=== PATIENT | female | born 1935 | race Caucasian/White ===

== ENCOUNTER → 2017-02-04 | Outpatient (CLI) | payer MEDICARE, OTHER ==
--- NOTE | 2017-02-04 19:16 | US ---
EXAMINATION TYPE: US venous doppler duplex LE LT DATE OF EXAM: 02/04/2017 6:43 PM COMPARISON: NONE CLINICAL HISTORY: R22.42 Swelling, mass, lump, left leg. SIDE PERFORMED: Left TECHNIQUE: The lower extremity deep venous system is examined utilizing real time linear array sonog raudel with graded compression, doppler sonography and color-flow sonography. VESSELS IMAGED: External Iliac Vein (EIV) Common Femoral Vein Deep Femoral Vein Greater Saphenous Vein * Femoral Vein Popliteal Vein Small Saphenous Vein * Proximal Calf Veins (* superficial vessels) Left Leg: Negative for DVT No evidence of DVT left leg IMPRESSION: Normal exam. No evidence of deep venous thrombosis in the left leg.
== END | disposition home or self-care (01) ==
LOC: RADUSMAIN 18:14
PROVIDERS: ATTEND Internal Medicine
DX: R22.42 Localized swelling, mass and lump, left lower limb (principal)

== ENCOUNTER → 2017-07-06 | Outpatient (CLI) | payer MEDICARE | END | disposition home or self-care (01) | LOC: LABWHC1 10:47 | PROVIDERS: ATTEND Radiology Diagnostic Radiology | DX: N28.9 Disorder of kidney and ureter, unspecified (principal) | CPT/HCPCS: 36415; 82565; 84520 ==

== ENCOUNTER → 2017-08-06 | Outpatient (CLI) | payer MEDICARE ==
--- NOTE | 2017-08-06 13:52 | US ---
EXAMINATION TYPE: US venous doppler duplex LE LT DATE OF EXAM: 08/06/2017 1:31 PM COMPARISON: Left lower extremity venous ultrasound February 04, 2017 CLINICAL HISTORY: R22.42 Swelling left lower limb. SIDE PERFORMED: Left TECHNIQUE: The lower extremity deep venous system is examined utilizing real time linear array sonog raudel with graded compression, doppler sonography and color-flow sonography. VESSELS IMAGED: External Iliac Vein (EIV) Common Femoral Vein Deep Femoral Vein Greater Saphenous Vein * Femoral Vein Popliteal Vein Small Saphenous Vein * Proximal Calf Veins (* superficial vessels) Left Leg: Unable to do compression views in groin due to patient tolerance. Appears negative for DVT. Grayscale, color doppler, spectral doppler imaging performed of the deep veins of the left lower extr emity. There is normal flow and vascular waveforms. Exam slightly suboptimal as patient could not t olerate compression images in left groin. Remainder left groin shows satisfactory compressibility on images saved. IMPRESSION: No ultrasound evidence for acute DVT in the left lower extremity.
== END | disposition home or self-care (01) ==
LOC: RADUSWWP 13:03
PROVIDERS: ATTEND Radiology Radiation Oncology
DX: R22.42 Localized swelling, mass and lump, left lower limb (principal); I82.0 Budd-Chiari syndrome; Z88.5 Allergy status to narcotic agent; Z88.8 Allergy status to other drugs, medicaments and biological substances

== ENCOUNTER → 2017-08-19 | Outpatient (CLI) | payer MEDICARE ==
[2017-08-19 10:11] LABS: Basophils % (A) 1 %; Eosinophils # (A) 0.1 k/uL (0-0.7); Eosinophils % (A) 2 %; HCT 28.8 % (34.0-46.0); HGB 8.8 gm/dL (11.4-16.0); Hypochromasia Slight; Lymphocytes # (A) 0.8 k/uL (1.0-4.8); Lymphocytes % (A) 16 %; MCH 27.7 pg (25.0-35.0); MCHC 30.7 g/dL (31.0-37.0); MCV 90.1 fL (80.0-100.0); Mean Platelet Volume 8.1; Monocytes # (A) 0.4 k/uL (0-1.0); Monocytes % (A) 9 %; Neutrophils # (A) 3.3 k/uL (1.3-7.7); Neutrophils % (A) 71 %; Platelet Count 196 k/uL (150-450); RBC 3.19 m/uL (3.80-5.40); RDW 15.5 % (11.5-15.5); WBC 4.7 k/uL (3.8-10.6)
[2017-08-19 10:46] LABS: Albumin 3.4 g/dL (3.5-5.0); Calcium 8.5 mg/dL (8.4-10.2); Potassium 5.4 mmol/L (3.5-5.1); Total Bilirubin 0.2 mg/dL (0.2-1.3); Total Protein 6.6 g/dL (6.3-8.2)
[2017-08-19 10:53] LABS: T4, Free (Free Thyroxine) 1.3 ng/dL (0.78-2.19)
[2017-08-19 18:43] LABS: Hemoglobin A1C 5.7 % (4.0-6.0)
== END | disposition home or self-care (01) ==
LOC: LABWHC1 09:40
PROVIDERS: ATTEND Internal Medicine
DX: E78.00 Pure hypercholesterolemia, unspecified (principal); E11.9 Type 2 diabetes mellitus without complications; I10 Essential (primary) hypertension; Z13.29 Encounter for screening for other suspected endocrine disorder
CPT/HCPCS: 36415; 80053; 80061; 83036; 84439; 84443; 85025

== ENCOUNTER 2017-10-04 19:16 | Inpatient (IN) | payer MEDICARE ==
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
[2017-10-04 20:10] LABS: Anisocytosis Slight; Basophils % (A) 1 %; Eosinophils # (A) 0.2 k/uL (0-0.7); Eosinophils % (A) 3 %; HGB 9.3 gm/dL (11.4-16.0); Lymphocytes % (A) 16 %; MCH 28.9 pg (25.0-35.0); MCHC 32.1 g/dL (31.0-37.0); MCV 90.1 fL (80.0-100.0); Mean Platelet Volume 7.7; Monocytes # (A) 0.4 k/uL (0-1.0); Monocytes % (A) 7 %; Neutrophils # (A) 4.2 k/uL (1.3-7.7); Neutrophils % (A) 71 %; Platelet Count 243 k/uL (150-450); RBC 3.22 m/uL (3.80-5.40); RDW 16.2 % (11.5-15.5); WBC 5.9 k/uL (3.8-10.6)
[2017-10-04 20:19] LABS: Amylase 51 U/L (30-110); Lipase 44 U/L (23-300)
[2017-10-04 20:20] LABS: Albumin 3.4 g/dL (3.5-5.0); Total Protein 6.5 g/dL (6.3-8.2)
[2017-10-04 20:21] LABS: Calcium 8.7 mg/dL (8.4-10.2); Magnesium 1.5 mg/dL (1.6-2.3); Total Bilirubin 0.2 mg/dL (0.2-1.3)
[2017-10-04 20:27] LABS: Creatine Kinase 52 U/L (30-135)
[2017-10-04 20:32] LABS: Potassium 6.2 mmol/L (3.5-5.1)
--- NOTE | 2017-10-04 20:32 | XR ---
EXAMINATION TYPE: XR chest 2V DATE OF EXAM: 10/04/2017 COMPARISON: 04/16/2017 INDICATION: Pneumonia dementia uterine cancer TECHNIQUE: Frontal and lateral views of the chest are obtained. FINDINGS: The heart size is mildly prominent. The pulmonary vasculature is normal. The lungs are clear. No suspicious focal consolidation is evident. Multiple old right rib fractures are evident with deformity of the thoracic cavity which is stable from comparison. IMPRESSION: 1. No acute pulmonary process.
--- NOTE | 2017-10-04 20:33 | XR ---
EXAMINATION TYPE: XR KUB DATE OF EXAM: 10/04/2017 COMPARISON: NONE INDICATION: Pain TECHNIQUE: Single view abdomen supine view FINDINGS: There is a normal bowel gas pattern. Psoas margins are normal. No organomegaly is present. Surgical sutures within the right midabdomen. Osseous structures have degenerative changes within the lumbar spine. Costochondral cartilage calcification is present. IMPRESSION: 1. Nonspecific abdomen.
[2017-10-04] MEDS ORDERED: SODIUM CHLORIDE 0.9% 1,000 ML IV STA (20:34)
[2017-10-04 20:40] LABS: Creatine Kinase MB 2.6 ng/mL (0.0-2.4); Troponin I <0.012 ng/mL (0.000-0.034)
[2017-10-04 20:42] LABS: Prothrombin Time 9.7 sec (9.0-12.0)
[2017-10-04 20:44] LABS: D-Dimer 2.16 mg/L FEU (<0.60)
[2017-10-04 20:45] LABS: Partial Thromboplastin Time 21.4 sec (22.0-30.0)
[2017-10-04] MEDS ORDERED: MAGNESIUM SULFATE-D5W PMX 1 GM in DEXTROSE/WATER 1 100ML.BAG IVPB ONE (21:08)
[2017-10-04] MEDS ORDERED: NALOXONE 0.4 MG/ML 1 ML VIAL IV PRN (21:18)
[2017-10-04] MEDS ORDERED: ACETAMINOPHEN TAB 325 MG TAB PO PRN (21:18)
[2017-10-04] MEDS: SODIUM CHLORIDE 0.9% 1,000 ML IV SCH (22:46)
[2017-10-05 02:29] LABS: Creatine Kinase 50 U/L (30-135)
[2017-10-05 02:39] LABS: Creatine Kinase MB 2.2 ng/mL (0.0-2.4); Troponin I <0.012 ng/mL (0.000-0.034)
[2017-10-05 03:44] LABS: Anisocytosis Slight; HCT 27.5 % (34.0-46.0); HGB 8.7 gm/dL (11.4-16.0); Hypochromasia Slight; MCH 28.6 pg (25.0-35.0); MCHC 31.5 g/dL (31.0-37.0); MCV 90.9 fL (80.0-100.0); Mean Platelet Volume 7.7; Platelet Count 196 k/uL (150-450); RBC 3.02 m/uL (3.80-5.40); RDW 16.1 % (11.5-15.5); WBC 5.2 k/uL (3.8-10.6)
[2017-10-05 04:00] LABS: Calcium 8.6 mg/dL (8.4-10.2); Magnesium 1.8 mg/dL (1.6-2.3); Potassium 5.7 mmol/L (3.5-5.1)
[2017-10-05 09:31] LABS: Creatine Kinase 57 U/L (30-135)
[2017-10-05 09:44] LABS: Troponin I <0.012 ng/mL (0.000-0.034)
[2017-10-05] MEDS: SODIUM CHLORIDE 0.9% 1,000 ML IV SCH (12:10)
[2017-10-05] MEDS ORDERED: CARVEDILOL 12.5 MG TAB PO SCH (17:15)
[2017-10-05] MEDS: ASPIRIN 81 MG PO SCH (17:45)
[2017-10-05] MEDS: LINAGLIPTIN 5 MG TABLET PO SCH (17:45)
[2017-10-05] MEDS: LISINOPRIL 20 MG TAB PO SCH (17:46)
[2017-10-05] MEDS: PANTOPRAZOLE 40 MG/10 ML VIAL IVP SCH (17:46)
[2017-10-05] MEDS: CITALOPRAM HYDROBROMIDE 20 MG TAB PO SCH (17:46)
[2017-10-05] MEDS: amLODIPine 5 MG TAB PO SCH (17:46)
[2017-10-05 17:59] LABS: Appearance,Urine Clear (Clear); Bilirubin,Urine Negative (Negative); Blood,Urine Negative (Negative); Color,Urine Colorless; Glucose,Urine (UA) Negative (Negative); Ketones,Urine Negative (Negative); Leukocyte Esterase,Urine Trace (Negative); Nitrite,Urine Negative (Negative); Protein,Urine 1+ (Negative); RBC,Urine <1 /hpf (0-5); Specific Gravity,Urine 1.007 (1.001-1.035); Squamous Epithelial Cell,Urine <1 /hpf (0-4); Urobilinogen,Urine <2.0 mg/dL (<2.0); WBC,Urine 2 /hpf (0-5)
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
[2017-10-05 20:54] LABS: Glucose,Whole Blood 130 mg/dL (75-99)
[2017-10-05] MEDS: CITALOPRAM HYDROBROMIDE 10 MG TAB PO SCH (21:47)
[2017-10-05] MEDS: traMADol 50 MG TAB PO SCH (21:48)
[2017-10-05] MEDS: HEPARIN SODIUM,PORCINE 5,000 UNIT/ML 1 ML VIAL SQ SCH (21:53)
[2017-10-06] MEDS: SODIUM CHLORIDE 0.9% 1,000 ML IV SCH ×2 (05:10→15:26)
[2017-10-06 06:10] LABS: Glucose,Whole Blood 98 mg/dL (75-99)
[2017-10-06 06:25] LABS: Anisocytosis Slight; Basophils % (A) 1 %; Eosinophils # (A) 0.1 k/uL (0-0.7); Eosinophils % (A) 2 %; HCT 27.9 % (34.0-46.0); HGB 8.7 gm/dL (11.4-16.0); Hypochromasia Slight; Lymphocytes # (A) 0.8 k/uL (1.0-4.8); Lymphocytes % (A) 20 %; MCH 28.4 pg (25.0-35.0); MCV 91.6 fL (80.0-100.0); Mean Platelet Volume 7.6; Monocytes # (A) 0.4 k/uL (0-1.0); Monocytes % (A) 9 %; Neutrophils # (A) 2.6 k/uL (1.3-7.7); Neutrophils % (A) 65 %; Platelet Count 191 k/uL (150-450); RBC 3.05 m/uL (3.80-5.40); RDW 16.2 % (11.5-15.5)
[2017-10-06 06:45] LABS: Calcium 8.7 mg/dL (8.4-10.2); Potassium 5.2 mmol/L (3.5-5.1)
[2017-10-06] MEDS: HEPARIN SODIUM,PORCINE 5,000 UNIT/ML 1 ML VIAL SQ SCH ×2 (10:45→20:49)
[2017-10-06] MEDS: CITALOPRAM HYDROBROMIDE 20 MG TAB PO SCH (10:46)
[2017-10-06] MEDS: PANTOPRAZOLE 40 MG/10 ML VIAL IVP SCH (10:46)
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
[2017-10-06] MEDS: LINAGLIPTIN 5 MG TABLET PO SCH (10:47)
[2017-10-06] MEDS: FUROSEMIDE 20 MG TAB PO SCH (10:47)
[2017-10-06] MEDS: ASPIRIN 81 MG PO SCH (10:47)
[2017-10-06] MEDS: LISINOPRIL 20 MG TAB PO SCH (10:47)
[2017-10-06] MEDS: amLODIPine 5 MG TAB PO SCH (10:47)
[2017-10-06] MEDS: LORATADINE 10 MG TAB PO SCH (10:47)
[2017-10-06] MEDS: traMADol 50 MG TAB PO SCH ×2 (10:49→20:50)
--- NOTE | 2017-10-06 10:50 | NM ---
EXAMINATION TYPE: NM pul vent and perfuse DATE OF EXAM: 10/06/2017 COMPARISON: Chest x-ray from 2 days ago HISTORY: Elevated d-dimer and chest pain TECHNIQUE: Utilizing inhalation of 39.1 mCi Tc 99m DTPA aerosol and intravenous injection of 5.21 mC i of Tc 99m MAA, ventilation and perfusion images are acquired post injection in multiple projections . FINDINGS: There are small to moderate-sized matching defects worse in the right lung which is noted smaller in size with old rib fractures on comparison chest x-ray. There is no evidence of mismatched defects. IMPRESSION: Low scintigraphic evidence for pulmonary embolism
[2017-10-06 11:26] LABS: Glucose,Whole Blood 128 mg/dL (75-99)
--- NOTE | 2017-10-06 16:02 | ECHOF ---
Referral Reason:chest pain MEASUREMENTS -------- HEIGHT: 165.1 cm WEIGHT: 76.2 kg BP: 134/56 RVIDd: 3.1 cm (< 3.3) IVSd: 1.0 cm (0.6 - 1.1) LVIDd: 5.1 cm (3.9 - 5.3) LVPWd: 1.0 cm (0.6 - 1.1) IVSs: 1.4 cm LVIDs: 2.9 cm LVPWs: 1.3 cm LAESV Index (A-L): 44.75 ml/m Ao Diam: 2.5 cm (2.0 - 3.7) AV Cusp: 1.1 cm (1.5 - 2.6) LA Diam: 4.3 cm (2.7 - 3.8) EPSS: 1.4 cm MV E Jerry: 1.29 m/s MV DecT: 278 ms MV A Jerry: 1.39 m/s MV E/A Ratio: 0.93 AV maxP.12 mmHg AV meanP.16 mmHg RAP: 5.00 mmHg RVSP: 43.87 mmHg MV EF SLOPE: 41.73 mm/s (70 - 150) MV EXCURSION: 1.78 cm (> 18.000) FINDINGS -------- Sinus rhythm. This was a technically adequate study. The left ventricular size is normal. Left ventricular wall thickness is normal. Overall left vent ricular systolic function is normal with, an EF between 55 - 60 %. The RV was not well visualized. LA is severely dilated >40 ml/m2 RA appears enlarged. There is mild to moderate aortic valve sclerosis. There is no evidence of aortic regurgitation. T here is mild aortic stenosis present. Peak/mean gradient across the Aortic Valve is 20.12mmHg / 11. 16mmHg. Moderate mitral annular calcification present. Mild mitral regurgitation is present. Mild tricuspid regurgitation present. There is mild pulmonary hypertension. The right ventricular systolic pressure, as measured by Doppler, is 43.87mmHg. Trace/mild (physiologic) pulmonic regurgitation. The aortic root size is normal. Normal inferior vena cava with normal inspiratory collapse consistent with estimated right atrial pre ssure of 5 mmHg. There is no pericardial effusion. CONCLUSIONS -------- 1. Sinus rhythm. 2. This was a technically adequate study. 3. The left ventricular size is normal. 4. Left ventricular wall thickness is normal. 5. Overall left ventricular systolic function is normal with, an EF between 55 - 60 %. 6. The RV was not well visualized. 7. LA is severely dilated >40 ml/m2 8. RA appears enlarged. 9. There is mild to moderate aortic valve sclerosis. 10. There is mild aortic stenosis present. 11. Peak/mean gradient across the Aortic Valve is 20.12mmHg / 11.16mmHg. 12. Moderate mitral annular calcification present. 13. Mild mitral regurgitation is present. 14. Mild tricuspid regurgitation present. 15. There is mild pulmonary hypertension. 16. The right ventricular systolic pressure, as measured by Doppler, is 43.87mmHg. 17. Trace/mild (physiologic) pulmonic regurgitation. 18. The aortic root size is normal. 19. There is no pericardial effusion. MANAGER LSW: Richard Regalado RDCS
[2017-10-06 16:52] LABS: Glucose,Whole Blood 129 mg/dL (75-99)
--- NOTE | 2017-10-06 19:46 | PN ---
PROGRESS NOTE DATE OF SERVICE: 10/06/2017. INTERVAL HISTORY: This 82-year-old woman who was admitted with abdominal chest pain, epigastric pain is being closely monitored. Patient also complains of tiredness, weakness and as well as gait dysfunction also. The V/VQ scan showed low probability. No chest pain. No palpitations. No fever. EXAM: Alert and oriented x2. Pulse 59. Blood pressure 120/54, respirations 16, temperature 97.2, pulse ox 94% room air. HEENT: Conjunctivae normal. NECK: No jugular venous distention. CARDIAC: S1, S2 muffled. RESPIRATIONS: Breath sounds diminished in the bases. A few scattered rhonchi. No crackles. ABDOMEN is soft, nontender. No mass palpable. LEGS no edema and no swelling. CENTRAL NERVOUS SYSTEM: No focal deficits. LAB STUDIES: WBC 8.4, hemoglobin 8.7, potassium 5.2. Other labs are noted. ASSESSMENT: 1. Chest pain, epigastric pain, myocardial infarction ruled out, possibly gastroesophageal reflux disease. 2. Sinus bradycardia. 3. Gait dysfunction. 4. Dementia. 5. Diabetes type 2. 6. Hypertension. 7. Hyperlipidemia. 8. History of pneumonia. 9. History of atrial fibrillation paroxysmal. 10.History of lymphoma. 11.History of sacral decubitus. 12.History of cholecystectomy. 13.History of anxiety. 14.FULL CODE. RECOMMENDATIONS AND DISCUSSION: Recommend to continue current medications, management and symptomatic treatment. Otherwise, at this time, I would recommend continue the current medication. PT/OT evaluation, possible ECF rehab. Discussed with Case Management team and further recommendations to follow. MMODL / IJN: [id number] /
[2017-10-06] MEDS: CITALOPRAM HYDROBROMIDE 10 MG TAB PO SCH (20:49)
[2017-10-06 21:12] LABS: Glucose,Whole Blood 154 mg/dL (75-99)
[2017-10-07 06:02] LABS: Glucose,Whole Blood 97 mg/dL (75-99)
[2017-10-07 06:32] LABS: Anisocytosis Slight; Basophils % (A) 1 %; Eosinophils # (A) 0.1 k/uL (0-0.7); Eosinophils % (A) 3 %; HCT 27.6 % (34.0-46.0); HGB 8.5 gm/dL (11.4-16.0); Hypochromasia Moderate; Lymphocytes # (A) 0.9 k/uL (1.0-4.8); Lymphocytes % (A) 19 %; MCH 28.2 pg (25.0-35.0); MCHC 30.7 g/dL (31.0-37.0); MCV 91.6 fL (80.0-100.0); Mean Platelet Volume 7.6; Monocytes # (A) 0.4 k/uL (0-1.0); Monocytes % (A) 9 %; Neutrophils # (A) 3.1 k/uL (1.3-7.7); Neutrophils % (A) 66 %; Platelet Count 207 k/uL (150-450); RBC 3.01 m/uL (3.80-5.40); RDW 16.4 % (11.5-15.5); WBC 4.6 k/uL (3.8-10.6)
[2017-10-07 06:56] LABS: Calcium 8.7 mg/dL (8.4-10.2); Potassium 5.3 mmol/L (3.5-5.1)
[2017-10-07] MEDS: SODIUM CHLORIDE 0.9% 1,000 ML IV SCH ×2 (06:56→19:52)
[2017-10-07] MEDS: amLODIPine 5 MG TAB PO SCH (08:21)
[2017-10-07] MEDS: CITALOPRAM HYDROBROMIDE 20 MG TAB PO SCH (08:21)
[2017-10-07] MEDS: HEPARIN SODIUM,PORCINE 5,000 UNIT/ML 1 ML VIAL SQ SCH ×2 (08:21→20:16)
[2017-10-07] MEDS: ASPIRIN 81 MG PO SCH (08:21)
[2017-10-07] MEDS: LINAGLIPTIN 5 MG TABLET PO SCH (08:22)
[2017-10-07] MEDS: LORATADINE 10 MG TAB PO SCH (08:22)
[2017-10-07] MEDS: LISINOPRIL 20 MG TAB PO SCH (08:22)
[2017-10-07] MEDS: PANTOPRAZOLE 40 MG/10 ML VIAL IVP SCH (08:22)
[2017-10-07] MEDS: traMADol 50 MG TAB PO SCH ×2 (08:24→20:15)
[2017-10-07 12:18] LABS: Glucose,Whole Blood 128 mg/dL (75-99)
--- NOTE | 2017-10-07 14:21 | P.DS ---
Providers Date of admission: 10/04/17 21:18 Attending physician: Antoinette Garcia Consults: 10/05/17 17:04 Consult Physician Routine Consulting Provider: Canelo Helms Consult Reason/Comments: chest pain Do you want consulting provider notified?: Yes Primary care physician: Hansa Finch [facility] Course: She is a very pleasant 82-year-old female admitted to rule out acute coronary syndromes. Patient has atypical chest pain appears to be gastritis or peptic is a disease symptoms improved patient will be discharged on Prilosec 40 mg twice a day. Patient is on lisinopril and her potassium is borderline high history it was 5.1 today 5.3 will cut down the lisinopril from 20 mg to 5 mg increase the dose of amlodipine. Patient will be discharged today to subacute rehabilitation. PHYSICAL EXAMINATION: GENERAL: The patient is alert and oriented x3, not in any acute distress. Well developed, well nourished. HEENT: Pupils are round and equally reacting to light. EOMI. No scleral icterus. No conjunctival pallor. Normocephalic, atraumatic. No pharyngeal erythema. No thyromegaly. CARDIOVASCULAR: S1 and S2 present. No murmurs, rubs, or gallops. PULMONARY: Chest is clear to auscultation, no wheezing or crackles. ABDOMEN: Soft, nontender, nondistended, normoactive bowel sounds. No palpable organomegaly. MUSCULOSKELETAL: No joint swelling or deformity. EXTREMITIES: No cyanosis, clubbing, or pedal edema. NEUROLOGICAL: Gross neurological examination did not reveal any focal deficits. SKIN: No rashes. Assessment and Plan Plan: Assessment and plan #1 epigastric discomfort due to gastritis or peptic ulcer disease #2 diabetes2 #3 hypertension #4 dementia #5 hyperkalemia #6 abnormal d-dimer, VQ scan ordered to rule out possibility of PE. Patient Condition at Discharge: Stable Plan - Discharge Summary New Discharge Prescriptions: New amLODIPine [Norvasc] 10 mg PO DAILY tab Lisinopril [Zestril] 5 mg PO DAILY #30 tab Continue Citalopram Hydrobromide [CeleXA] 40 mg PO QAM Cetirizine HCl [Zyrtec] 10 mg PO DAILY sitaGLIPtin [Januvia] 100 mg PO DAILY Furosemide [Lasix] 20 mg PO Q48H Citalopram Hydrobromide [CeleXA] 10 mg PO HS Aspirin 81 mg PO DAILY Acetaminophen Tab [Tylenol] 500 - 1,000 mg PO Q6HR PRN MDD 6 TABLETS PRN Reason: Pain traMADol HCL [Ultram] 50 mg PO BID #6 tablet Changed Omeprazole [PriLOSEC] 20 mg PO BID #1 Discontinued Carvedilol [Coreg*] 12.5 mg PO DAILY amLODIPine BESYLATE/BENAZEPRIL [Lotrel 5-10 mg Capsule] 1 cap PO DAILY Discharge Medication List Cetirizine HCl [Zyrtec] 10 mg PO DAILY 10/04/17 [History] Citalopram Hydrobromide [CeleXA] 40 mg PO QAM 10/04/17 [History] Furosemide [Lasix] 20 mg PO Q48H 10/04/17 [History] sitaGLIPtin [Januvia] 100 mg PO DAILY 10/04/17 [History] Acetaminophen Tab [Tylenol] 500 - 1,000 mg PO Q6HR PRN MDD 6 TABLETS 10/05/17 [ History] Aspirin 81 mg PO DAILY 10/05/17 [History] Citalopram Hydrobromide [CeleXA] 10 mg PO HS 10/05/17 [History] Lisinopril [Zestril] 5 mg PO DAILY #30 tab 10/07/17 [Rx] Omeprazole [PriLOSEC] 20 mg PO BID #1 10/07/17 [Rx] amLODIPine [Norvasc] 10 mg PO DAILY tab 10/07/17 [Rx] traMADol HCL [Ultram] 50 mg PO BID #6 tablet 10/07/17 [Rx] Follow up Appointment(s)/Referral(s): None,Stated [REFERRING] - 3 Days Ambulatory/Diagnostic Orders: Basic Metabolic Panel [LAB.AMB] Time Frame: 3 Days, Location: Determined By Patient Activity/Diet/Wound Care/Special Instructions: Maureen Eller on D/C Discharge Disposition: TRANSFER TO SNF/ECF
--- NOTE | 2017-10-07 14:44 | CDI ---
Last Revision, April 2017 Documentation Clarification Form Date: 10/07/17 1442 From: Corrine Khalil RN, CCDS Admit Date: 10/04/2017 9:18:00 PM Patient Name: Lesley Griggs Visit Number: [id number] ATTENTION: The Clinical Documentation Specialists (CDI) and [facility] Coding Staff appreciate your assistance in clarifying documentation. Please respond to the clarification below the line at the bottom and electronically sign. The CDI & [facility] Coding staff will review the response and follow-up if needed. Please note: Queries are made part of the Legal Health Record. If you have any questions, please contact the author of this message via ITS. Dr. Mary Blankenship A diagnosis of anemia lacks specificity to accurately reflect your patients severity of condition and clarification is needed. History/Risk Factors: Dementia, anemia, HTN, DM 2 Clinical indicators: Hemoglobin: 9.3/8.7/8.5 Hematocrit: 29/27.5/27.9/27.6 Treatment: Labs AM daily In order to capture the severity of condition, please clarify the type of anemia and etiology if known: Acute on chronic blood loss anemia Chronic blood loss anemia Iron deficiency anemia Drug induced anemia Nutritional anemia Anemia of chronic kidney disease Anemia of chronic disease Unable to determine Other, please specify Please continue to document in your progress notes and discharge summary in order to capture severity of illness and risk of mortality. Include clinical findings that support your diagnosis. MTDD
[2017-10-07 16:57] LABS: Glucose,Whole Blood 104 mg/dL (75-99)
[2017-10-07] MEDS: CITALOPRAM HYDROBROMIDE 10 MG TAB PO SCH (20:16)
[2017-10-07 20:50] LABS: Glucose,Whole Blood 174 mg/dL (75-99)
[2017-10-08 05:49] LABS: Glucose,Whole Blood 96 mg/dL (75-99)
[2017-10-08 06:37] LABS: Anisocytosis Slight; Basophils % (A) 1 %; Eosinophils # (A) 0.1 k/uL (0-0.7); Eosinophils % (A) 3 %; HCT 27.5 % (34.0-46.0); HGB 8.9 gm/dL (11.4-16.0); Hypochromasia Slight; Lymphocytes # (A) 0.7 k/uL (1.0-4.8); Lymphocytes % (A) 16 %; MCH 29.2 pg (25.0-35.0); MCHC 32.2 g/dL (31.0-37.0); MCV 90.7 fL (80.0-100.0); Mean Platelet Volume 7.7; Monocytes # (A) 0.4 k/uL (0-1.0); Monocytes % (A) 9 %; Neutrophils % (A) 69 %; Platelet Count 173 k/uL (150-450); RBC 3.03 m/uL (3.80-5.40); RDW 16.1 % (11.5-15.5); WBC 4.3 k/uL (3.8-10.6)
[2017-10-08 06:56] LABS: Calcium 9.2 mg/dL (8.4-10.2); Potassium 5.2 mmol/L (3.5-5.1)
[2017-10-08] MEDS: PANTOPRAZOLE 40 MG/10 ML VIAL IVP SCH (07:50)
[2017-10-08] MEDS: HEPARIN SODIUM,PORCINE 5,000 UNIT/ML 1 ML VIAL SQ SCH ×2 (07:50→20:42)
[2017-10-08] MEDS: traMADol 50 MG TAB PO SCH ×2 (07:50→20:42)
[2017-10-08] MEDS: LINAGLIPTIN 5 MG TABLET PO SCH (07:51)
[2017-10-08] MEDS: amLODIPine 5 MG TAB PO SCH (07:51)
[2017-10-08] MEDS: LISINOPRIL 20 MG TAB PO SCH (07:51)
[2017-10-08] MEDS: ASPIRIN 81 MG PO SCH (07:51)
[2017-10-08] MEDS: FUROSEMIDE 20 MG TAB PO SCH (07:51)
[2017-10-08] MEDS: CITALOPRAM HYDROBROMIDE 20 MG TAB PO SCH (07:51)
[2017-10-08] MEDS: LORATADINE 10 MG TAB PO SCH (07:51)
[2017-10-08] MEDS: SODIUM CHLORIDE 0.9% 1,000 ML IV SCH (07:52)
[2017-10-08 11:59] LABS: Glucose,Whole Blood 143 mg/dL (75-99)
--- NOTE | 2017-10-08 13:32 | P.DS ---
Providers Date of admission: 10/04/17 21:18 Attending physician: Antoinette Garcia Consults: 10/05/17 17:04 Consult Physician Routine Consulting Provider: Canelo Helms Consult Reason/Comments: chest pain Do you want consulting provider notified?: Yes Primary care physician: Hansa Finch Hospital Course: Patient is awaiting insurance authorization because of pain which patient ended up staying in the hospital. I saw and evaluated the patient today no significant changes and physical exam are management and plan. Please refer to my dictation of my discharge summary from yesterday for further details. Patient has chronic anemia which need to be further evaluated as an outpatient etiology is unknown GENERAL: The patient is alert and oriented x3, not in any acute distress. Well developed, well nourished. Patient is bit confused but no significant change compared to yesterday HEENT: Pupils are round and equally reacting to light. EOMI. No scleral icterus. No conjunctival pallor. Normocephalic, atraumatic. No pharyngeal erythema. No thyromegaly. CARDIOVASCULAR: S1 and S2 present. No murmurs, rubs, or gallops. PULMONARY: Chest is clear to auscultation, no wheezing or crackles. ABDOMEN: Soft, nontender, nondistended, normoactive bowel sounds. No palpable organomegaly. MUSCULOSKELETAL: No joint swelling or deformity. EXTREMITIES: No cyanosis, clubbing, or pedal edema. NEUROLOGICAL: Gross neurological examination did not reveal any focal deficits. SKIN: No rashes. Patient Condition at Discharge: Stable Plan - Discharge Summary New Discharge Prescriptions: New amLODIPine [Norvasc] 10 mg PO DAILY tab Lisinopril [Zestril] 5 mg PO DAILY #30 tab Continue Citalopram Hydrobromide [CeleXA] 40 mg PO QAM Cetirizine HCl [Zyrtec] 10 mg PO DAILY sitaGLIPtin [Januvia] 100 mg PO DAILY Furosemide [Lasix] 20 mg PO Q48H Citalopram Hydrobromide [CeleXA] 10 mg PO HS Aspirin 81 mg PO DAILY Acetaminophen Tab [Tylenol] 500 - 1,000 mg PO Q6HR PRN MDD 6 TABLETS PRN Reason: Pain traMADol HCL [Ultram] 50 mg PO BID #6 tablet Changed Omeprazole [PriLOSEC] 20 mg PO BID #1 Discontinued Carvedilol [Coreg*] 12.5 mg PO DAILY amLODIPine BESYLATE/BENAZEPRIL [Lotrel 5-10 mg Capsule] 1 cap PO DAILY Discharge Medication List Cetirizine HCl [Zyrtec] 10 mg PO DAILY 10/04/17 [History] Citalopram Hydrobromide [CeleXA] 40 mg PO QAM 10/04/17 [History] Furosemide [Lasix] 20 mg PO Q48H 10/04/17 [History] sitaGLIPtin [Januvia] 100 mg PO DAILY 10/04/17 [History] Acetaminophen Tab [Tylenol] 500 - 1,000 mg PO Q6HR PRN MDD 6 TABLETS 10/05/17 [ History] Aspirin 81 mg PO DAILY 10/05/17 [History] Citalopram Hydrobromide [CeleXA] 10 mg PO HS 10/05/17 [History] Lisinopril [Zestril] 5 mg PO DAILY #30 tab 10/07/17 [Rx] Omeprazole [PriLOSEC] 20 mg PO BID #1 10/07/17 [Rx] amLODIPine [Norvasc] 10 mg PO DAILY tab 10/07/17 [Rx] traMADol HCL [Ultram] 50 mg PO BID #6 tablet 10/07/17 [Rx] Follow up Appointment(s)/Referral(s): None,Stated [REFERRING] - 3 Days Ambulatory/Diagnostic Orders: Basic Metabolic Panel [LAB.AMB] Time Frame: 3 Days, Location: Determined By Patient Activity/Diet/Wound Care/Special Instructions: Maureen Eller on D/C Discharge Disposition: TRANSFER TO SNF/ECF
[2017-10-08 14:37] VITALS: BMI 28.1
[2017-10-08 17:12] LABS: Glucose,Whole Blood 119 mg/dL (75-99)
[2017-10-08 20:21] LABS: Glucose,Whole Blood 137 mg/dL (75-99)
[2017-10-08] MEDS: CITALOPRAM HYDROBROMIDE 10 MG TAB PO SCH (20:42)
[2017-10-09] MEDS: SODIUM CHLORIDE 0.9% 1,000 ML IV SCH (03:04)
[2017-10-09 06:10] LABS: Glucose,Whole Blood 101 mg/dL (75-99)
[2017-10-09 06:38] LABS: Anisocytosis Slight; Basophils % (A) 1 %; Eosinophils # (A) 0.1 k/uL (0-0.7); Eosinophils % (A) 3 %; HCT 28.6 % (34.0-46.0); HGB 8.9 gm/dL (11.4-16.0); Hypochromasia Slight; Lymphocytes # (A) 0.8 k/uL (1.0-4.8); Lymphocytes % (A) 17 %; MCH 28.2 pg (25.0-35.0); MCV 90.9 fL (80.0-100.0); Mean Platelet Volume 7.6; Monocytes # (A) 0.5 k/uL (0-1.0); Monocytes % (A) 10 %; Neutrophils # (A) 3.2 k/uL (1.3-7.7); Neutrophils % (A) 67 %; Platelet Count 209 k/uL (150-450); RBC 3.15 m/uL (3.80-5.40); RDW 16.4 % (11.5-15.5); WBC 4.8 k/uL (3.8-10.6)
[2017-10-09 06:43] LABS: Potassium 5.3 mmol/L (3.5-5.1)
[2017-10-09] MEDS: ASPIRIN 81 MG PO SCH (08:16)
[2017-10-09] MEDS: CITALOPRAM HYDROBROMIDE 20 MG TAB PO SCH (08:16)
[2017-10-09] MEDS: HEPARIN SODIUM,PORCINE 5,000 UNIT/ML 1 ML VIAL SQ SCH (08:16)
[2017-10-09] MEDS: LINAGLIPTIN 5 MG TABLET PO SCH (08:16)
[2017-10-09] MEDS: LISINOPRIL 20 MG TAB PO SCH (08:17)
[2017-10-09] MEDS: LORATADINE 10 MG TAB PO SCH (08:17)
[2017-10-09] MEDS: amLODIPine 5 MG TAB PO SCH (08:17)
[2017-10-09] MEDS: traMADol 50 MG TAB PO SCH (08:20)
[2017-10-09] MEDS: PANTOPRAZOLE 40 MG/10 ML VIAL IVP SCH (08:29)
[2017-10-09 10:33] VITALS: BP 156/81; PULSE 73; TEMP 97.8
[2017-10-09 10:36] VITALS: RESP 18
--- NOTE | 2017-10-14 16:06 | CDI ---
Last Revision, April 2017 Documentation Clarification Form Date: 10/14/17 From: Merissa Leal Phone: If you have a question regarding this query, please contact Milli Hou at [phone] between 8am and 5pm Admit Date: 10/04/2017 9:18:00 PM Patient Name: Lesley Griggs Visit Number: [id number] Discharge Date: 10/09/17 ATTENTION: The Clinical Documentation Specialists (CDI) and [facility] Coding Staff appreciate your assistance in clarifying documentation. Please respond to the clarification below the line at the bottom and electronically sign. The CDI & [facility] Coding staff will review the response and follow-up if needed. Please note: Queries are made part of the Legal Health Record. If you have any questions, please contact the author of this message via ITS. Dr. Mary Blankenship Documentation in the past medical history of the ED note and the consult note, states past renal failure. Documentation in the medical decision making of the ED note states that the patient does have chronic renal failure. History/Risk Factors: Hypertension and diabetes. Clinical Indicators: Abnormal renal parameters Current BUN/CR/GFR: 43/1.40/35 - 56 Patients Baseline: BUN/CR/GFR: Not documented In order to capture the severity of condition, please clarify if the condition signifies: CKD Stage 1 (GFR > 90) CKD Stage 2 (GFR 60-89) CKD Stage 3 (GFR 30-59) CKD Stage 4 (GFR 15-29) CKD Stage 5 (GFR <15) ESRD Other, please specify Unable to determine MTDD
== END 2017-10-09 12:17 | disposition home health service (06) | DRG 392 ==
LOC: EC 19:16 → 6SEL 21:18
PROVIDERS: ADMIT Internal Medicine; ATTEND Internal Medicine
DX: K29.70 Gastritis, unspecified, without bleeding (principal); D64.9 Anemia, unspecified; E11.22 Type 2 diabetes mellitus with diabetic chronic kidney disease; E78.5 Hyperlipidemia, unspecified; E87.5 Hyperkalemia; F03.90 Unspecified dementia, unspecified severity, without behavioral disturbance, psychotic disturbance, mood disturbance, and anxiety; I12.9 Hypertensive chronic kidney disease with stage 1 through stage 4 chronic kidney disease, or unspecified chronic kidney disease; I45.10 Unspecified right bundle-branch block; I48.0 Paroxysmal atrial fibrillation; K27.9 Peptic ulcer, site unspecified, unspecified as acute or chronic, without hemorrhage or perforation; R79.1 Abnormal coagulation profile; F41.9 Anxiety disorder, unspecified; G89.29 Other chronic pain; M54.9 Dorsalgia, unspecified; R00.1 Bradycardia, unspecified; R26.9 Unspecified abnormalities of gait and mobility; K21.9 Gastro-esophageal reflux disease without esophagitis; N18.9 Chronic kidney disease, unspecified; M19.90 Unspecified osteoarthritis, unspecified site; Z79.82 Long term (current) use of aspirin; Z79.84 Long term (current) use of oral hypoglycemic drugs; Z79.899 Other long term (current) drug therapy; Z90.710 Acquired absence of both cervix and uterus; Z90.49 Acquired absence of other specified parts of digestive tract; Z87.01 Personal history of pneumonia (recurrent); Z85.72 Personal history of non-Hodgkin lymphomas; Z85.42 Personal history of malignant neoplasm of other parts of uterus; Z88.5 Allergy status to narcotic agent; Z88.8 Allergy status to other drugs, medicaments and biological substances; Z92.3 Personal history of irradiation; Z80.0 Family history of malignant neoplasm of digestive organs
CPT/HCPCS: 36415; 71046; 74018; 78582; 80048; 80053; 81001; 82150; 82550; 82553; 83036; 83690; 83735; 84484; 85025; 85027; 85379; 85610; 85730; 87086; 93005; 93306; 96361; 96365; 99284

== ENCOUNTER 2017-10-19 20:51 | Emergency (ER) | payer MEDICARE ==
[2017-10-19 21:18] VITALS: RESP 18
[2017-10-19] MEDS ORDERED: DIPH,PERTUS(ACELL)TETVAC-LF 0.5 ML VIAL IM ONE (21:28)
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
--- NOTE | 2017-10-19 22:45 | CT ---
EXAMINATION TYPE: CT brain pranay martins con DATE OF EXAM: 10/19/2017 COMPARISON: Head CT scan 04/16/2017 HISTORY: Fall, head injury, headache. CT DLP: 1711.3 mGycm Automated exposure control for dose reduction was used. TECHNIQUE: CT scan of the head and cervical spine are performed without contrast. FINDINGS: There is diffuse cerebral cortical atrophy. There is no mass effect nor midline shift. Th ere is no sign of intracranial hemorrhage. The calvarium is intact. Cervical vertebra have normal alignment. There is mild narrowing at C6-7 disc space. Posterior elemen ts are intact. Skull base is intact. Facet joints are intact. IMPRESSION: Cerebral atrophy. No acute intracranial abnormality. No change compared to old exam. Minimal spondylosis in the lower cervical spine. No fracture.
[2017-10-19 23:16] VITALS: BP 148/67; PULSE 69; TEMP 98.1
== END 2017-10-19 23:48 | disposition home or self-care (01) ==
LOC: EC 20:51
DX: S09.90XA Unspecified injury of head, initial encounter (principal); F03.90 Unspecified dementia, unspecified severity, without behavioral disturbance, psychotic disturbance, mood disturbance, and anxiety; E11.9 Type 2 diabetes mellitus without complications; E78.5 Hyperlipidemia, unspecified; I10 Essential (primary) hypertension; N28.9 Disorder of kidney and ureter, unspecified; F41.9 Anxiety disorder, unspecified; Z23 Encounter for immunization; Z88.5 Allergy status to narcotic agent; Z88.8 Allergy status to other drugs, medicaments and biological substances; Z79.82 Long term (current) use of aspirin; Z79.84 Long term (current) use of oral hypoglycemic drugs; Z79.899 Other long term (current) drug therapy; W18.09XA Striking against other object with subsequent fall, initial encounter; Y92.009 Unspecified place in unspecified non-institutional (private) residence as the place of occurrence of the external cause
CPT/HCPCS: 70450; 72125; 90471; 90715; 99284

== ENCOUNTER 2018-02-02 07:37 | Emergency (ER) | payer MEDICARE ==
[2018-02-02 07:50] VITALS: RESP 18; TEMP 98.1
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
[2018-02-02] MEDS ORDERED: SODIUM CHLORIDE 0.9% 1,000 ML IV ONE (08:37)
[2018-02-02] MEDS ORDERED: HYDROmorphone 0.5 MG/0.5 ML SYRINGE IVP STA (08:38)
[2018-02-02] MEDS ORDERED: ONDANSETRON 4 MG/2 ML VIAL IVP STA (08:38)
--- NOTE | 2018-02-02 08:46 | XR ---
EXAMINATION TYPE: XR tibia fibula LT DATE OF EXAM: 02/02/2018 COMPARISON: NONE HISTORY: Pain TECHNIQUE: Two views are submitted. FINDINGS: The osseous structures are intact. The joint spaces are preserved. Diffuse osteopenia noted. Arthro zac of the knee joint. Chondrocalcinosis involving the knee joint. IMPRESSION: 1. No acute osseous abnormality.
--- NOTE | 2018-02-02 08:47 | XR ---
EXAMINATION TYPE: XR femur LT DATE OF EXAM: 02/02/2018 CLINICAL HISTORY: Pain TECHNIQUE: Two views of the left femur are obtained. COMPARISON: None FINDINGS: There is no acute fracture or dislocation seen in the left femur. Diffuse osteopenia noted . Hypertrophic change involving the patella with arthropathy of the knee joint and hip joint. Vascula r calcifications noted. IMPRESSION: There is no acute fracture or dislocation in the left femur.
--- NOTE | 2018-02-02 08:49 | XR ---
EXAMINATION TYPE: XR chest 2V DATE OF EXAM: 02/02/2018 COMPARISON: 10/04/2017 TECHNIQUE: PA and lateral views submitted. HISTORY: Pain FINDINGS: There are chronic rib cage deformities on the right. Heart size is mildly prominent. Arthropathy of t he shoulders with diffuse osteopenia. Rib deformities involving the left upper liver gauge also noted . No pneumothorax or consolidation. Hypertrophic and degenerative changes of the vertebral column. Di ffuse osteopenia noted. IMPRESSION: 1. Chronic appearing rib deformities with no definite acute process.
--- NOTE | 2018-02-02 08:59 | XR ---
EXAMINATION TYPE: XR Hip LT and AP Pelvis DATE OF EXAM: 02/02/2018 COMPARISON: CT abdomen and pelvis September 26, 2013 HISTORY: Fall injury a few days ago with persistent pain TECHNIQUE: A single AP view of the pelvis is obtained. Two views of the left hip are obtained. FINDINGS: Demineralization is present which is noted to lower radiographic sensitivity. There is no acute fracture/dislocation evident in the pelvis. The sacroiliac joints appear symmetric and unremar kable. Mild to moderate symmetric axial joint space loss in both hips is present. Surgical clips ove rlie the right lower quadrant and upper pelvis. Vascular calcification throughout the pelvis is prese nt. Two views of left hip show no acute fracture or dislocation. No focal lytic or sclerotic lesion seen in the proximal left femur. Mild acetabular spurring is present. Round loose body near superolatera l aspect of acetabulum is present. The overlying soft tissue shows some suspected dystrophic calcific ation inferior to the lesser trochanter. IMPRESSION: There is no acute fracture or dislocation in the pelvis or left hip.
[2018-02-02 09:46] LABS: Basophils % (A) 1 %; Eosinophils # (A) 0.1 k/uL (0-0.7); Eosinophils % (A) 2 %; HCT 34.8 % (34.0-46.0); HGB 11.5 gm/dL (11.4-16.0); Lymphocytes # (A) 0.9 k/uL (1.0-4.8); Lymphocytes % (A) 14 %; MCH 30.4 pg (25.0-35.0); MCHC 33.1 g/dL (31.0-37.0); MCV 91.9 fL (80.0-100.0); Mean Platelet Volume 7.7; Monocytes # (A) 0.4 k/uL (0-1.0); Monocytes % (A) 6 %; Neutrophils # (A) 5.3 k/uL (1.3-7.7); Neutrophils % (A) 77 %; Platelet Count 193 k/uL (150-450); RBC 3.78 m/uL (3.80-5.40); RDW 14.6 % (11.5-15.5); WBC 6.9 k/uL (3.8-10.6)
[2018-02-02 09:58] LABS: Albumin 3.5 g/dL (3.5-5.0); Calcium 9.1 mg/dL (8.4-10.2); Potassium 5.2 mmol/L (3.5-5.1); Total Bilirubin 0.3 mg/dL (0.2-1.3)
[2018-02-02 10:04] LABS: Prothrombin Time 9.9 sec (9.0-12.0)
[2018-02-02 10:08] LABS: Partial Thromboplastin Time 21.3 sec (22.0-30.0)
--- NOTE | 2018-02-02 10:43 | US ---
EXAMINATION TYPE: US venous doppler duplex LE LT DATE OF EXAM: 02/02/2018 10:12 AM COMPARISON: US 2018 CLINICAL HISTORY: Pain. Left leg pain SIDE PERFORMED: Left TECHNIQUE: The lower extremity deep venous system is examined utilizing real time linear array sonog raudel with graded compression, doppler sonography and color-flow sonography. VESSELS IMAGED: External Iliac Vein (EIV) Common Femoral Vein Deep Femoral Vein Greater Saphenous Vein * Femoral Vein Popliteal Vein Small Saphenous Vein * Proximal Calf Veins (* superficial vessels) Left Leg: Appears negative for DVT Grayscale, color doppler, spectral doppler imaging performed of the deep veins of the left lower extr emity. There is normal flow, compressibility, vascular waveforms. IMPRESSION: No ultrasound evidence for acute DVT in left lower extremity on current study.
[2018-02-02 11:28] VITALS: BP 128/65; PULSE 68
== END 2018-02-02 11:28 | disposition home or self-care (01) ==
LOC: EC 07:37
DX: M79.605 Pain in left leg (principal); S70.02XA Contusion of left hip, initial encounter; F41.9 Anxiety disorder, unspecified; E11.9 Type 2 diabetes mellitus without complications; I10 Essential (primary) hypertension; Z79.899 Other long term (current) drug therapy; Z79.82 Long term (current) use of aspirin; Z88.5 Allergy status to narcotic agent; Z88.8 Allergy status to other drugs, medicaments and biological substances; Z85.41 Personal history of malignant neoplasm of cervix uteri; Z85.72 Personal history of non-Hodgkin lymphomas; W07.XXXA Fall from chair, initial encounter
CPT/HCPCS: 36415; 80053; 85025; 85610; 85730; 73502; 73552; 73590; 71046; 93971; 99284; 96374; 96375; 96361; J2405; J1170

== ENCOUNTER 2018-02-11 09:41 | Inpatient (IN) | payer MEDICARE ==
[2018-02-11] MEDS ORDERED: SODIUM CHLORIDE 0.9% 1,000 ML IV STA (09:51)
[2018-02-11] MEDS ORDERED: SODIUM CHLORIDE 0.9% 500 ML 500 ML IV STA (09:51)
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
[2018-02-11] MEDS ORDERED: ONDANSETRON 4 MG/2 ML VIAL IVP STA (10:52)
[2018-02-11 11:04] LABS: Basophils % (A) 0 %; Eosinophils % (A) 0 %; HCT 35.5 % (34.0-46.0); HGB 10.9 gm/dL (11.4-16.0); Lymphocytes # (A) 0.4 k/uL (1.0-4.8); Lymphocytes % (A) 5 %; MCH 29.3 pg (25.0-35.0); MCHC 30.6 g/dL (31.0-37.0); MCV 95.8 fL (80.0-100.0); Mean Platelet Volume 7.7; Monocytes # (A) 0.4 k/uL (0-1.0); Monocytes % (A) 5 %; Neutrophils % (A) 89 %; Platelet Count 181 k/uL (150-450); RBC 3.71 m/uL (3.80-5.40); RDW 14.7 % (11.5-15.5)
[2018-02-11 11:14] LABS: Prothrombin Time 9.7 sec (9.0-12.0)
[2018-02-11 11:15] LABS: Albumin 3.3 g/dL (3.5-5.0); Calcium 8.9 mg/dL (8.4-10.2); Magnesium 1.4 mg/dL (1.6-2.3); Potassium 5.7 mmol/L (3.5-5.1); Total Bilirubin 0.4 mg/dL (0.2-1.3); Total Protein 6.6 g/dL (6.3-8.2)
[2018-02-11] MEDS ORDERED: MAGNESIUM SULFATE-D5W PMX 1 GM in DEXTROSE/WATER 1 100ML.BAG IVPB ONE ×2 (11:30→15:55)
[2018-02-11 11:34] LABS: Partial Thromboplastin Time 20.7 sec (22.0-30.0)
[2018-02-11 11:36] LABS: Creatine Kinase MB 2.9 ng/mL (0.0-2.4); Troponin I <0.012 ng/mL (0.000-0.034)
[2018-02-11 11:56] LABS: Creatine Kinase 97 U/L (30-135)
[2018-02-11] MEDS ORDERED: RX INFO: IV CONTRAST WAS GIVEN 1 EACH MISC MISCELLANE PRN (12:09)
[2018-02-11 12:10] LABS: Appearance,Urine Clear (Clear); Bilirubin,Urine Negative (Negative); Blood,Urine Negative (Negative); Color,Urine Light Yellow; Glucose,Urine (UA) Negative (Negative); Ketones,Urine Negative (Negative); Leukocyte Esterase,Urine Negative (Negative); Nitrite,Urine Negative (Negative); Protein,Urine Negative (Negative); Specific Gravity,Urine 1.008 (1.001-1.035); Urobilinogen,Urine <2.0 mg/dL (<2.0)
--- NOTE | 2018-02-11 12:52 | CT ---
EXAMINATION TYPE: CT brain cspine wo con DATE OF EXAM: 02/11/2018 COMPARISON: CT brain and cervical spine 10/19/2017 HISTORY: Fall today. CT DLP: 1678 mGycm Automated exposure control for dose reduction was used. TECHNIQUE: CT scan of the head and cervical spine are performed without contrast. FINDINGS: There is no acute intracranial hemorrhage, mass effect, or midline shift identified. The ventricles and sulci are within normal limits in size. The globes are intact and the visualized sin uses are remarkable for inflammatory change in the sphenoid sinus, ethmoid air cells. Mucoperiosteal thickening right maxillary sinus. Cerebral vascular calcifications are present. Cortical atrophy, per iventricular white matter low-attenuation again noted. Cervical spine is visualized in its entirety from C1 through upper thoracic levels and demonstrates s atisfactory alignment without evidence of acute fracture or dislocation. Prevertebral soft tissue ap pears within normal limits. There is multilevel spondylosis, some loss of disc height present at C5-6 , C6-7. Multilevel foraminal encroachment present. The C1-C2 articulation is unremarkable. IMPRESSION: 1. There is no acute fracture or dislocation evident in the cervical spine. 2. No acute intracranial hemorrhage, mass effect, or midline shift is seen.
--- NOTE | 2018-02-11 12:59 | CT ---
EXAMINATION TYPE: CT chest w con DATE OF EXAM: 02/11/2018 COMPARISON: Chest x-ray 02/02/2018 HISTORY: Carcinoma of vagina, abnormal lung findings. CT DLP: 504 mGycm Automated exposure control for dose reduction was used. CONTRAST: CT scan of the chest is performed with IV Contrast, patient injected with 80 mL of Isovue M300. FINDINGS: LUNGS: There is a soft tissue mass in the left upper lobe anteriorly measuring approximately 18 mm. L eft lower lobe soft tissue mass is present which abuts the pleural surface axial image 38 measuring 2 .5 cm. Dependent atelectatic changes are present bilaterally. Interstitium is somewhat prominent. Pul monary artery is increased in size measuring greater than 4 cm suggesting pulmonary artery hypertensi on ascending aorta is not aneurysmal. Atheromatous changes are present within the aorta. No endobronc hial lesion, pleural or pericardial effusion. The heart is enlarged. Mitral annular calcification is present, there are coronary artery calcifications. Hiatal hernia is present. MEDIASTINUM: There are no greater than 1 cm hilar or mediastinal lymph nodes. No pericardial effusi on is seen. No pericardial effusion is seen. AORTA: No additional significant abnormality is seen. OTHER: Deformity the proximal humerus compatible with fracture. Liver shows dilated intrahepatic sandra ts likely due to postcholecystectomy change. Deformities of multiple ribs suggest chronic fractures. IMPRESSION: Findings compatible with metastatic disease. Possible pulmonary artery hypertension. Cor onary artery disease and cardiomegaly. Proximal right humeral fracture. Postop changes. Additional fi ndings above.
--- NOTE | 2018-02-11 13:46 | XR ---
EXAMINATION TYPE: XR chest 1V DATE OF EXAM: 02/11/2018 COMPARISON: Prior chest x-ray 02/02/[address] 02/11/2018 HISTORY: Trauma and pain TECHNIQUE: Single frontal view of the chest is obtained. FINDINGS: There is no pleural effusion or pneumothorax seen. The cardiac silhouette size is stable, enlarged. Comminuted proximal right humerus fracture is present with displacement and angulation. Mu ltiple old rib fractures are noted. Interstitium is prominent. Patient's left-sided lung masses are n ot well seen. No evident dislocation. Prominent pulmonary artery is not well seen. Surgical clips pre sent in the right upper quadrant. Patient is rotated. IMPRESSION: Proximal right humerus fracture. Prominence of interstitium, correlate to exclude pulmon felicity venous hypertension and interstitial edema. Patient with known left lung masses.
--- NOTE | 2018-02-11 13:47 | XR ---
Right shoulder HISTORY: Trauma and pain 2 views of the right shoulder Bone mineralization is reduced. Comminuted proximal right humeral fracture is present with angulation . No evident dislocation. Old right-sided rib fractures are noted incidentally. Exam is somewhat limi lizbeth technically. IMPRESSION: Comminuted proximal humeral fracture
--- NOTE | 2018-02-11 13:49 | XR ---
AP pelvis history: Trauma and pain Single frontal view of the pelvis is submitted. Bone mineralization is reduced which could limit sensitivity. Degenerative disc changes are noted in the lower lumbar spine. Alignment, joint spaces are maintained. Vascular calcifications noted inciden tally. Surgical clips present in the right lower quadrant. Probable overlying snap also present overl joseline the right lower quadrant. IMPRESSION: No acute fracture or dislocation is evident. Limitations as described. Degenerative disc disease. Postop changes.
[2018-02-11] MEDS ORDERED: fentaNYL (PF) 50 MCG/ML 2 ML AMP IV STA (13:50)
[2018-02-11] MEDS ORDERED: NALOXONE 0.4 MG/ML 1 ML VIAL IV PRN (14:56)
[2018-02-11] MEDS ORDERED: HYDROcodone/APAP 5-325MG 1 EACH TAB PO PRN (14:58)
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
[2018-02-11] MEDS: SODIUM CHLORIDE 0.9% 1,000 ML IV SCH (16:48)
[2018-02-11] MEDS: KETOROLAC 30 MG/ML 1 ML VIAL IVP SCH (17:01)
[2018-02-11] MEDS: CITALOPRAM HYDROBROMIDE 20 MG TAB PO SCH (20:20)
[2018-02-11 20:57] LABS: Glucose,Whole Blood 167 mg/dL (75-99)
[2018-02-11] MEDS ORDERED: traMADol 50 MG TAB PO SCH (21:00)
[2018-02-11] MEDS: INSULIN ASPART 100 UNIT/ML 1 ML 10 ML VIAL SQ SCH (22:25)
[2018-02-12] MEDS: KETOROLAC 30 MG/ML 1 ML VIAL IVP SCH ×5 (00:22→23:44)
[2018-02-12] MEDS: SODIUM CHLORIDE 0.9% 1,000 ML IV SCH ×2 (05:50→16:53)
[2018-02-12] MEDS: LEVOTHYROXINE 100 MCG TAB PO SCH (05:53)
[2018-02-12 07:12] LABS: Glucose,Whole Blood 108 mg/dL (75-99)
[2018-02-12] MEDS: INSULIN ASPART 100 UNIT/ML 1 ML 10 ML VIAL SQ SCH ×4 (07:18→20:47)
[2018-02-12] MEDS: CITALOPRAM HYDROBROMIDE 20 MG TAB PO SCH ×2 (08:16→20:47)
[2018-02-12] MEDS: PANTOPRAZOLE 40 MG TABLET PO SCH (08:16)
[2018-02-12] MEDS: traMADol 50 MG TAB PO PRN (08:17)
[2018-02-12] MEDS ORDERED: LISINOPRIL 5 MG TAB PO SCH (09:00)
[2018-02-12] MEDS ORDERED: FUROSEMIDE 20 MG TAB PO SCH (09:00)
[2018-02-12 09:48] LABS: HCT 34.9 % (34.0-46.0); Hypochromasia Moderate; MCH 30.2 pg (25.0-35.0); MCHC 31.4 g/dL (31.0-37.0); Mean Platelet Volume 8.1; Platelet Count 187 k/uL (150-450); RBC 3.64 m/uL (3.80-5.40); RDW 14.7 % (11.5-15.5); WBC 5.8 k/uL (3.8-10.6)
[2018-02-12] MEDS: amLODIPine 10 MG TAB PO SCH (09:51)
[2018-02-12] MEDS: LETROZOLE 2.5 MG TAB PO SCH (09:51)
[2018-02-12] MEDS: LINAGLIPTIN 5 MG TABLET PO SCH (09:51)
[2018-02-12] MEDS: ASPIRIN 81 MG PO SCH (09:51)
[2018-02-12] MEDS: LORATADINE 10 MG TAB PO SCH (09:51)
[2018-02-12 10:31] LABS: Calcium 8.9 mg/dL (8.4-10.2); Magnesium 2.1 mg/dL (1.6-2.3)
[2018-02-12] MEDS ORDERED: SODIUM POLYSTYRENE SULFONATE 15 GM/60 ML BOTTLE PO STA ×2 (10:37→16:54)
[2018-02-12 12:12] LABS: Glucose,Whole Blood 170 mg/dL (75-99)
[2018-02-12 16:44] LABS: Calcium 8.3 mg/dL (8.4-10.2); Potassium 5.7 mmol/L (3.5-5.1)
[2018-02-12 16:59] LABS: Glucose,Whole Blood 186 mg/dL (75-99)
--- NOTE | 2018-02-12 17:27 | XR ---
EXAMINATION TYPE: XR ankle complete LT DATE OF EXAM: 02/12/2018 COMPARISON: NONE HISTORY: Ankle pain TECHNIQUE: 3 views FINDINGS: There are large plantar and Achilles calcaneal spurs. Ankle mortise is anatomic. I see no f racture nor dislocation. There is some soft tissue swelling on the plantar aspect of the calcaneus. IMPRESSION: Soft tissue swelling. No fracture seen. Large calcaneal spurs.
[2018-02-12 20:30] LABS: Hemoglobin A1C 5.7 % (4.0-6.0)
[2018-02-12 20:34] LABS: Glucose,Whole Blood 161 mg/dL (75-99)
--- NOTE | 2018-02-12 20:47 | P.PN ---
Subjective Progress Note Date: 02/12/18 Progress note being dictated for Dr. Mckinney Interval history:83-year-old pleasant female came in today after slipping and falling when she was trying to get out of the bed, had a mechanical fall without any syncope. Patient is found to have proximal humerus fracture. Patient denied any fever chills nausea vomiting shortness of breath dysuria. Patient is in a lot of pain. Patient has been having falsely was by herself with the help of neighbors and frequent visits of her daughter. She denied any cough, abdominal pain diarrhea 02/12/2018 receiving gentle IV fluid hydration with renal function improving, down to 1.15. Potassium down to 5.7, and Kayexalate administered. Complains of generalized pain, improved with Ultram. Left ankle x-ray reported soft tissue swelling, no fracture .Good diet intake, consuming 100%. No nausea vomiting or diarrhea. Mild confusion, cooperative. REVIEW OF SYSTEMS: CONSTITUTIONAL: No fever, no malaise, no fatigue. HEENT: No recent visual problems or hearing problems. Denied any sore throat. CARDIOVASCULAR: No chest pain, orthopnea, PND, no palpitations, no syncope. PULMONARY: No shortness of breath, no cough, no hemoptysis. GASTROINTESTINAL: No diarrhea, no nausea, no vomiting, no abdominal pain. Normoactive bowel sounds. NEUROLOGICAL: No headaches, no weakness, no numbness. HEMATOLOGICAL: Denies any bleeding or petechiae. GENITOURINARY: Denies any burning micturition, frequency, or urgency. MUSCULOSKELETAL/RHEUMATOLOGICAL: Pain and swelling in the left the humerus ENDOCRINE: Denies any polyuria or polydipsia. The rest of the 14-point review of systems is negative. Active Medications Acetaminophen (Tylenol Tab) 650 mg PO Q6HR PRN PRN Reason: Fever and/ or Pain Amlodipine Besylate (Norvasc) 10 mg PO DAILY [facility] Last Admin: 02/12/18 09:51 Dose: 10 mg Aspirin (Aspirin) 81 mg PO DAILY [facility] Last Admin: 02/12/18 09:51 Dose: 81 mg Citalopram Hydrobromide (Celexa) 20 mg PO BID [facility] Last Admin: 02/12/18 08:16 Dose: 20 mg Sodium Chloride (Saline 0.9%) 1,000 mls @ 80 mls/hr IV .[id number] [facility] Last Admin: 02/12/18 16:53 Dose: 80 mls/hr Insulin Aspart (Novolog) 0 unit SQ ACHS [facility]; Protocol Last Admin: 02/12/18 17:54 Dose: 100 unit Ketorolac Tromethamine (Toradol) 30 mg IVP Q6HR [facility] Stop: 02/15/18 16:11 Last Admin: 02/12/18 16:53 Dose: Not Given Letrozole (Femara) 2.5 mg PO DAILY [facility] Last Admin: 02/12/18 09:51 Dose: 2.5 mg Levothyroxine Sodium (Synthroid) 100 mcg PO DAILY@0630 [facility] Last Admin: 02/12/18 05:53 Dose: 100 mcg Linagliptin (Tradjenta) 5 mg PO DAILY [facility] Last Admin: 02/12/18 09:51 Dose: 5 mg Loratadine (Claritin) 10 mg PO DAILY [facility] Last Admin: 02/12/18 09:51 Dose: 10 mg Miscellaneous Information (Rx Info: Iv Contrast Was Given) 1 each MISCELLANE DAILY PRN PRN Reason: Per Protocol Stop: 02/13/18 12:11 Last Admin: 02/11/18 12:57 Dose: 1 each Naloxone HCl (Narcan) 0.2 mg IV Q2M PRN PRN Reason: Opioid Reversal Pantoprazole Sodium (Protonix) 40 mg PO -BRKFST [facility] Last Admin: 02/12/18 08:16 Dose: 40 mg Tramadol HCl (Ultram) 50 mg PO QID PRN PRN Reason: Moderate Pain/Discomfort Last Admin: 02/12/18 08:17 Dose: 50 mg Objective - Vital Signs Vital signs: Vital Signs Temp 98.7 F 02/12/18 15:00 Pulse 68 02/12/18 15:00 Resp 16 02/12/18 15:00 BP 136/72 02/12/18 15:00 Pulse Ox 97 02/12/18 15:00 Intake & Output 02/12/18 02/12/18 02/13/18 06:59 18:59 06:59 Intake Total 1370 400 Output Total 930 550 Balance 440 -150 Intake: Intake, IV Titration 880 Amount Sodium Chloride 0.9% 1, 880 000 ml @ 80 mls/hr IV . [id number] [facility] Rx#:[id number] Oral 490 400 Output: Urine 930 550 Other: Voiding Method Bedpan Bedpan # Voids 1 0 # Bowel Movements 0 - Exam GENERAL: The patient is alert and oriented x3, no acute distress HEENT: Pupils are round and equally reacting to light. EOMI. No scleral icterus. No conjunctival pallor. Normocephalic, atraumatic. No pharyngeal erythema. No thyromegaly. CARDIOVASCULAR: S1 and S2 present. No murmurs, rubs, or gallops. PULMONARY: Chest is clear to auscultation, no wheezing or crackles. ABDOMEN: Soft, nontender, nondistended, normoactive bowel sounds. No palpable organomegaly. MUSCULOSKELETAL: Right shoulder tender, right arm in sling, limited range of motion. Fingers warm, pink, normal capillary refill EXTREMITIES: No cyanosis, clubbing, or pedal edema. NEUROLOGICAL: Gross neurological examination did not reveal any focal deficits. SKIN: No rashes. - Labs CBC & Chem 7: 02/12/18 09:15 02/12/18 16:17 Labs: Abnormal Lab Results - Last 24 Hours (Table) 02/11/18 02/12/18 02/12/18 Range/Units 20:56 07:08 09:15 RBC 3.64 L (3.80-5.40) m/uL Hgb 11.0 L (11.4-16.0) gm/dL Potassium (3.5-5.1) mmol/L Carbon Dioxide (22-30) mmol/L BUN (7-17) mg/dL Creatinine (0.52-1.04) mg/dL Glucose (74-99) mg/dL POC Glucose (mg/dL) 167 H 108 H (75-99) mg/dL Calcium (8.4-10.2) mg/dL 02/12/18 02/12/18 02/12/18 Range/Units 09:15 12:10 16:17 RBC (3.80-5.40) m/uL Hgb (11.4-16.0) gm/dL Potassium 6.0 H 5.7 H (3.5-5.1) mmol/L Carbon Dioxide 31 H (22-30) mmol/L BUN 36 H 39 H (7-17) mg/dL Creatinine 1.27 H 1.15 H (0.52-1.04) mg/dL Glucose 143 H 143 H (74-99) mg/dL POC Glucose (mg/dL) 170 H (75-99) mg/dL Calcium 8.3 L (8.4-10.2) mg/dL 02/12/18 Range/Units 16:57 RBC (3.80-5.40) m/uL Hgb (11.4-16.0) gm/dL Potassium (3.5-5.1) mmol/L Carbon Dioxide (22-30) mmol/L BUN (7-17) mg/dL Creatinine (0.52-1.04) mg/dL Glucose (74-99) mg/dL POC Glucose (mg/dL) 186 H (75-99) mg/dL Calcium (8.4-10.2) mg/dL Assessment and Plan Assessment: -Fall mechanical with the right proximal humerus fracture in a patient with history of frequent falls -Generalized weakness due to deconditioning PT and OT consultation -Mild acute renal failure secondary to dehydration: Probably prerenal azotemia due to poor oral intake along with lisinopril which will be held -Hyperkalemia -Hypertension -Type 2 diabetes mellitus -Mild senile or vascular dementia -Anxiety disorder -Hypothyroidism Plan: Continue on current medication regime ,monitoring and symptomatic treatment. Orthopedic consult in place with recommendations pending. Pain management. Close monitoring of electrolytes, renal function with repeat labs ordered for a.m. Evaluated by PT/OT, subacute rehab recommended at discharge. Social work consulted. Further recommendations to follow. The impression and plan of care has been dictated as directed. : I performed a history and examination of this patient, discussed the same with the dictator. I agree with the dictator's note ,documented as a scribe. Any additional findings or plans will be noted.
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
[2018-02-13] MEDS: SODIUM CHLORIDE 0.9% 1,000 ML IV SCH (06:29)
[2018-02-13] MEDS: LEVOTHYROXINE 100 MCG TAB PO SCH (06:30)
[2018-02-13] MEDS: KETOROLAC 30 MG/ML 1 ML VIAL IVP SCH ×5 (06:30→23:42)
[2018-02-13 07:26] LABS: Glucose,Whole Blood 115 mg/dL (75-99)
[2018-02-13] MEDS: INSULIN ASPART 100 UNIT/ML 1 ML 10 ML VIAL SQ SCH ×4 (07:34→21:35)
[2018-02-13] MEDS: PANTOPRAZOLE 40 MG TABLET PO SCH (08:27)
[2018-02-13] MEDS: ASPIRIN 81 MG PO SCH (08:27)
[2018-02-13] MEDS: LINAGLIPTIN 5 MG TABLET PO SCH (08:27)
[2018-02-13] MEDS: CITALOPRAM HYDROBROMIDE 20 MG TAB PO SCH ×2 (08:27→21:35)
[2018-02-13] MEDS: amLODIPine 10 MG TAB PO SCH (08:27)
[2018-02-13] MEDS: LORATADINE 10 MG TAB PO SCH (08:28)
[2018-02-13] MEDS: LETROZOLE 2.5 MG TAB PO SCH (08:28)
[2018-02-13] MEDS: traMADol 50 MG TAB PO PRN (08:41)
[2018-02-13 09:31] LABS: Basophils % (A) 0 %; Eosinophils # (A) 0.2 k/uL (0-0.7); Eosinophils % (A) 2 %; HCT 31.9 % (34.0-46.0); HGB 10.7 gm/dL (11.4-16.0); Lymphocytes # (A) 0.8 k/uL (1.0-4.8); Lymphocytes % (A) 13 %; MCHC 33.6 g/dL (31.0-37.0); MCV 92.4 fL (80.0-100.0); Mean Platelet Volume 7.6; Monocytes # (A) 0.4 k/uL (0-1.0); Monocytes % (A) 6 %; Neutrophils # (A) 4.9 k/uL (1.3-7.7); Neutrophils % (A) 78 %; Platelet Count 179 k/uL (150-450); RBC 3.45 m/uL (3.80-5.40); RDW 14.7 % (11.5-15.5); WBC 6.4 k/uL (3.8-10.6)
[2018-02-13 09:55] LABS: Calcium 8.7 mg/dL (8.4-10.2)
[2018-02-13 11:32] LABS: Glucose,Whole Blood 172 mg/dL (75-99)
[2018-02-13] MEDS ORDERED: COLCHICINE 0.6 MG EACH PO SCH (14:05)
[2018-02-13] MEDS ORDERED: methylPREDNISolone SOD SUCCI 125 MG/2 ML VIAL IV SCH (14:15)
[2018-02-13 17:01] LABS: Glucose,Whole Blood 179 mg/dL (75-99)
[2018-02-13 21:04] LABS: Glucose,Whole Blood 145 mg/dL (75-99)
--- NOTE | 2018-02-13 23:02 | PN ---
PROGRESS NOTE DATE OF SERVICE: 02/13/2018. INTERVAL HISTORY: This 83-year-old woman was admitted with right proximal humerus fracture is being closely monitored. The patient also complaining generalized tiredness and weakness. The patient is following the patient closely and recommended conservative line of management. No chest pain. No palpitations. No fever. A CT scan of the chest was also done which showed metastatic disease. No chest pain. No palpitations. No fever. PAST MEDICAL HISTORY: Reviewed. REVIEW OF SYSTEMS: CARDIOVASCULAR: No angina. RESPIRATORY: As mentioned earlier. GI: As mentioned earlier. : No dysuria. NERVOUS SYSTEM: No numbness or weakness. CURRENT MEDICATIONS: 1. Tylenol 650 q.h.s. 2. Norvasc 5 mg daily. 3. Aspirin 81 mg. 4. Celexa 20 mg b.i.d. 5. NovoLog. 7. Synthroid 100 mcg. 8. Tradjenta. 10.Narcan. 11.Protonix. 12.Ultram. PHYSICAL EXAM: Patient is alert, oriented x2. The pulse is 59, blood pressure 120/50, respirations 16, temperature 99.2, pulse ox 98% on 2 L. HEENT: Conjunctivae normal. Oral mucosa moist. Neck is no jugular venous distention. No carotid bruit. No lymph node enlargement. CARDIOVASCULAR: S1, S2 muffled. RESPIRATORY: Breath sounds diminished in the bases. A few scattered rhonchi. ABDOMEN: Soft, nontender. NERVOUS SYSTEM: No focal deficits. Examination of the right forearm: Status post fracture. LABS: WBC 6.2, hemoglobin 10.7, creatinine 1.1. ASSESSMENT: 1. Fall, mechanical with right proximal humerus fracture in a patient with significant falls. 2. Generalized weakness and tiredness. 3. Acute renal failure secondary to dehydration. 4. Possible left upper lobe lung mass. 5. History of lymphoma. 6. History of dementia. 7. Diabetes mellitus. 8. Hypertension. 9. Hyperlipidemia. 10.Chronic back pain and degenerative joint disease. 11.Coccyx ulcer. 12.Anxiety. 13.NO CODE, NO CPR, NO VENT. RECOMMENDATIONS AND DISCUSSION: I recommend to continue current medications. Continue symptomatic treatment. Otherwise at this time, I would recommend continue current management and symptomatic treatment. I would also recommend hematology/oncology evaluation with Dr. Farley also. PT, OT evaluation, possible ECF rehab. The prognosis guarded because of multiple complex medical issues and further recommendations to follow. Possibility of pathologic fracture also to be considered. MMODL / IJN: [id number] / FILIBERTO
[2018-02-14] MEDS: LEVOTHYROXINE 100 MCG TAB PO SCH (06:19)
[2018-02-14] MEDS: KETOROLAC 30 MG/ML 1 ML VIAL IVP SCH ×4 (06:20→23:19)
[2018-02-14 07:49] LABS: Glucose,Whole Blood 123 mg/dL (75-99)
[2018-02-14] MEDS: INSULIN ASPART 100 UNIT/ML 1 ML 10 ML VIAL SQ SCH ×4 (07:55→21:59)
[2018-02-14] MEDS: amLODIPine 10 MG TAB PO SCH (08:43)
[2018-02-14] MEDS: ASPIRIN 81 MG PO SCH (08:43)
[2018-02-14] MEDS: PANTOPRAZOLE 40 MG TABLET PO SCH (08:43)
[2018-02-14] MEDS: LINAGLIPTIN 5 MG TABLET PO SCH (08:44)
[2018-02-14] MEDS: LETROZOLE 2.5 MG TAB PO SCH (08:44)
[2018-02-14] MEDS: LORATADINE 10 MG TAB PO SCH (08:44)
[2018-02-14] MEDS: CITALOPRAM HYDROBROMIDE 20 MG TAB PO SCH ×2 (08:44→22:02)
[2018-02-14 09:58] LABS: Basophils % (A) 1 %; Eosinophils # (A) 0.2 k/uL (0-0.7); Eosinophils % (A) 2 %; HCT 30.3 % (34.0-46.0); HGB 10.1 gm/dL (11.4-16.0); Lymphocytes # (A) 0.8 k/uL (1.0-4.8); Lymphocytes % (A) 12 %; MCH 31.1 pg (25.0-35.0); MCHC 33.3 g/dL (31.0-37.0); MCV 93.4 fL (80.0-100.0); Mean Platelet Volume 7.7; Monocytes # (A) 0.4 k/uL (0-1.0); Monocytes % (A) 6 %; Neutrophils # (A) 5.3 k/uL (1.3-7.7); Neutrophils % (A) 78 %; Platelet Count 166 k/uL (150-450); RBC 3.24 m/uL (3.80-5.40); RDW 14.6 % (11.5-15.5); WBC 6.8 k/uL (3.8-10.6)
[2018-02-14 10:06] LABS: Calcium 8.9 mg/dL (8.4-10.2); Potassium 4.7 mmol/L (3.5-5.1)
[2018-02-14 12:38] LABS: Glucose,Whole Blood 143 mg/dL (75-99)
[2018-02-14 17:16] LABS: Glucose,Whole Blood 158 mg/dL (75-99)
--- NOTE | 2018-02-14 20:07 | CONS ---
CONSULTATION DATE OF CONSULTATION: February 14, 2018. REASON FOR CONSULTATION: Carcinoma of the vagina. CHIEF COMPLAINT: Pain in her right arm. Lesley is a very pleasant 83-year-old lady, well known to our practice and has been under the care of Dr. Morales. 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 Garg for what initially she thought it was mice bites involving her skin and vagina of 6 months duration. The patient at that time was referred to have palliative radiation therapy and was felt not to be a candidate for any aggressive therapy and she was referred to AURICULOTHERAPIST Oncologist and felt that was not a candidate for any surgical intervention and then subsequently she was referred to have palliative radiation therapy. Initially she did have staging workup done with a CT scan of the abdomen and pelvis, which revealed 8 mm left lower lobe lung nodules in addition to soft tissue prominence and 7 mm nodule in the right hepatic lobe and a mass in the vaginal cuff, but however, followup imaging studies after her palliative radiation, there was significant reduction in the size of her vaginal cuff mass. The patient was started on endocrine therapy afterward and she was last seen in our office in November 12, 2017. She was felt to be stable at that time. The patient came into the emergency department this time because she fell at home as she was trying to get out of her bed. She did not have any syncope. She had x-rays in the emergency department and she was felt to have fracture of the proximal humerus. She was evaluated by the orthopedic and no surgical intervention was planned and sling was recommended. She had a CT scan done in the emergency department, which revealed a soft tissue mass in the left upper lobe along with multiple lung nodules. In particular, there was a soft tissue mass about 2.8 cm in the left lower lobe about the pleura. The patient is currently on the floor and she has underlying dementia and she is not that reliable providing information. Most of her history was taken from her medical record and from nursing staff. She complains of pain in her right arm but herself she denies any fever, chills, nausea, vomiting, and she denies any urinary symptoms and denies any melena, hematochezia, hematuria hemoptysis. 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 It was treated with total abdominal hysterectomy and bilateral salpingo-oophorectomy by Dr. Shahid and no adjuvant therapy at that time. She has a history of dementia, diabetes, hyperlipidemia, hypertension. FAMILY HISTORY: For malignancy, her father had colon cancer. REVIEW OF SYSTEMS: As stated above in history of present illness, as much as could be obtained from the patient. SOCIAL HISTORY: No history of smoking, alcohol abuse or substance abuse. ALLERGIES: She is ALLERGIC TO ATIVAN. MEDICATIONS: Reviewed in her electronic medical record. PHYSICAL EXAMINATION: She is alert. She answers questions appropriately. Elderly lady. She does appear to be in distress. Her vital signs are temperature 97.9, pulse 86, respirations 16, blood pressure 114/62. HEENT: Normocephalic, atraumatic. No icterus. NECK: Supple. CHEST: Equal expansion bilaterally. LUNGS: Clear to auscultation and percussion. Heart is regular rhythm. ABDOMEN: Soft. No tenderness or organomegaly. EXTREMITIES: Reveal no edema in her legs. LYMPHATICS: No peripherally enlarged cervical or supraclavicular lymphadenopathy. LABORATORY DATA: WBC of 6.2, hemoglobin 10.1, hematocrit 30.3, platelets 166. Sodium 142, potassium 4.2, chloride 107, CO2 is 30, BUN is 5, creatinine 1.01. IMPRESSION: 1. 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 2. 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 3. Multiple other comorbidities. RECOMMENDATION: 1. Continue current care per orthopedic. 2. The patient will follow up with Dr. Morales in the outpatient setting for further recommendation in regard to his systemic treatment, but however, I do not feel she would be a candidate for any aggressive therapy given her advanced age and multiple other comorbidities in particular the underlying dementia. Thank you very much for asking me participate in the care of this nice lady. MMODL / IJN: [id number] /
--- NOTE | 2018-02-14 20:19 | PN ---
PROGRESS NOTE DATE OF SERVICE: 02/14/2018 This 83-year-old woman was admitted with right proximal humerus fracture is being closely monitored. ECF rehab is being planned. No chest pain. No palpitations. No fever. PHYSICAL EXAM: Alert and oriented x3. Pulse 67, blood pressure 140/88, respirations 16, temperature 97.8, pulse ox 98% on room air. HEENT: Conjunctivae normal. Oral mucosa moist. Neck is no jugular venous distention. No carotid bruit. No lymph node enlargement. CARDIOVASCULAR: S1, S2. RESPIRATORY: Breath sounds diminished in the bases. A few scattered rhonchi. ABDOMEN: Soft, nontender. NERVOUS SYSTEM: No focal deficits. LABS: WBC 6.2, hemoglobin 10.1. ASSESSMENT: 1. Fall mechanical with right proximal humerus fracture in a patient with significant falls. 2. Generalized weakness and tiredness. 3. Acute renal failure secondary to dehydration. 4. Left upper lobe lung mass, possibly. 5. History of lymphoma. 6. History of dementia. 7. Diabetes type 2. 8. Hypertension. 9. Hyperlipidemia. 10.Chronic back pain, degenerative joint disease. 11.Coccyx ulcer. 12.Anxiety. 13.NO CODE, NO CPR, NO VENT. RECOMMENDATIONS AND DISCUSSION: I recommend to continue current management, continue monitoring and symptomatic treatment. Closely follow. Guarded prognosis. Further recommendations to follow. MMODL / IJN: [id number] /
[2018-02-14 22:06] LABS: Glucose,Whole Blood 120 mg/dL (75-99)
[2018-02-14] MEDS: ACETAMINOPHEN TAB 325 MG TAB PO PRN (22:16)
[2018-02-15] MEDS: LEVOTHYROXINE 100 MCG TAB PO SCH (05:20)
[2018-02-15] MEDS: KETOROLAC 30 MG/ML 1 ML VIAL IVP SCH ×2 (05:20→11:10)
[2018-02-15 07:42] LABS: Glucose,Whole Blood 113 mg/dL (75-99)
[2018-02-15] MEDS: INSULIN ASPART 100 UNIT/ML 1 ML 10 ML VIAL SQ SCH ×4 (07:57→21:42)
[2018-02-15] MEDS: LINAGLIPTIN 5 MG TABLET PO SCH (09:58)
[2018-02-15] MEDS: ASPIRIN 81 MG PO SCH (09:59)
[2018-02-15] MEDS: PANTOPRAZOLE 40 MG TABLET PO SCH (09:59)
[2018-02-15] MEDS: amLODIPine 10 MG TAB PO SCH (09:59)
[2018-02-15] MEDS: LORATADINE 10 MG TAB PO SCH (09:59)
[2018-02-15] MEDS: CITALOPRAM HYDROBROMIDE 20 MG TAB PO SCH ×2 (09:59→21:42)
[2018-02-15] MEDS: LETROZOLE 2.5 MG TAB PO SCH (10:00)
--- NOTE | 2018-02-15 10:25 | P.DS ---
Providers Date of admission: 02/11/18 14:57 Expected date of discharge: 02/15/18 Attending physician: Mary Mckinney Consults: 02/11/18 14:57 Consult Physician Routine Consulting Provider: Alex Soriano Consult Reason/Comments: Right proximal humerus fracture Do you want consulting provider notified?: Yes 02/13/18 20:05 Consult Physician Routine Consulting Provider: Conor Farley Consult Reason/Comments: malignancy Do you want consulting provider notified?: Yes Primary care physician: Hansa Finch [facility] Course: Final Diagnoses: -Fall mechanical with the right proximal humerus fracture in a patient with history of frequent falls -Generalized weakness due to deconditioning PT and OT consultation -Mild acute renal failure secondary to dehydration: Probably prerenal azotemia due to poor oral intake along with lisinopril which will be held -Hyperkalemia -Hypertension -Type 2 diabetes mellitus -Mild senile or vascular dementia -Anxiety disorder -Hypothyroidism -Carcinoma of the vulva, 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 History of lymphoma Hospital course: This is a 83-year-old pleasant female came in today after slipping and falling when she was trying to get out of the bed, had a mechanical fall without any syncope. Patient is found to have proximal humerus fracture. Patient denied any fever chills nausea vomiting shortness of breath dysuria. Patient is in a lot of pain. Patient has been having falsely was by herself with the help of neighbors and frequent visits of her daughter. She denied any cough, abdominal pain diarrhea Received gentle IV fluid hydration with renal function improving, down to 1.15. Potassium down to 5.7, and Kayexalate administered. Complains of generalized pain, improved with Ultram. Left ankle x-ray reported soft tissue swelling, no fracture .Good diet intake, consuming 100%. No nausea vomiting or diarrhea. Mild confusion, cooperative. Evaluated by oncology and orthopedics. No surgical intervention recommended at this time. Patient does not appear to be a candidate for aggressive therapy as per oncology. Significant clinical improvement. Cleared by orthopedics and oncology for discharge. Patient is being discharged to [facility] rehab in a stable condition with guarded prognosis. - Exam GENERAL: The patient is alert and oriented x3, no acute distress CARDIOVASCULAR: S1 and S2 present. No murmurs, rubs, or gallops. PULMONARY: Chest is clear to auscultation, no wheezing or crackles. ABDOMEN: Soft, nontender, nondistended, normoactive bowel sounds. No palpable organomegaly. MUSCULOSKELETAL: Right shoulder tender, right arm in sling, limited range of motion. Fingers warm, pink, normal capillary refill NEUROLOGICAL: Gross neurological examination did not reveal any focal deficits. The impression and plan of care has been dictated as directed. : I performed a history and examination of this patient, discussed the same with the dictator. I agree with the dictator's note ,documented as a scribe. Any additional findings or plans will be noted. Time taken: 35 minutes Patient Condition at Discharge: Stable Plan - Discharge Summary Discharge Rx Participant: No New Discharge Prescriptions: New Acetaminophen Tab [Tylenol] 650 mg PO Q6HR PRN tab PRN Reason: Fever And/ Or Pain INSULIN LISPRO (HumaLOG) [humaLOG] 0 unit SQ ACHS #1 vial Continue Cetirizine HCl [Zyrtec] 10 mg PO DAILY sitaGLIPtin [Januvia] 100 mg PO DAILY Furosemide [Lasix] 20 mg PO DAILY Citalopram Hydrobromide [CeleXA] 20 mg PO BID Aspirin 81 mg PO DAILY Letrozole 2.5 mg PO DAILY Omeprazole 20 mg PO BID amLODIPine [Norvasc] 10 mg PO DAILY Levothyroxine Sodium [Synthroid] 100 mcg PO DAILY Changed traMADol HCL [Ultram] 50 mg PO QID #12 tablet Discontinued Hydrocodone/Acetaminophen [[place] 5-325] 1 tab PO Q6HR PRN #10 tab PRN Reason: Pain Discharge Medication List Cetirizine HCl [Zyrtec] 10 mg PO DAILY 10/04/17 [History] Furosemide [Lasix] 20 mg PO DAILY 10/04/17 [History] sitaGLIPtin [Januvia] 100 mg PO DAILY 10/04/17 [History] Aspirin 81 mg PO DAILY 10/05/17 [History] Citalopram Hydrobromide [CeleXA] 20 mg PO BID 10/05/17 [History] Letrozole 2.5 mg PO DAILY 12/08/17 [History] Omeprazole 20 mg PO BID 02/02/18 [History] Levothyroxine Sodium [Synthroid] 100 mcg PO DAILY 02/11/18 [History] amLODIPine [Norvasc] 10 mg PO DAILY 02/11/18 [History] Acetaminophen Tab [Tylenol] 650 mg PO Q6HR PRN tab 02/15/18 [Rx] INSULIN LISPRO (HumaLOG) [humaLOG] 0 unit SQ ACHS #1 vial 02/15/18 [Rx] traMADol HCL [Ultram] 50 mg PO QID #12 tablet 02/15/18 [Rx] Follow up Appointment(s)/Referral(s): Hansa Finch MD [Primary Care Provider] - 3 Days Hardy Maravilla MD [STAFF PHYSICIAN] - 1 Week Sathya Morales MD [STAFF PHYSICIAN] - 1 Week Activity/Diet/Wound Care/Special Instructions: [facility] Diet: Consistent carb, renal Activity: As tolerated CBC, BMP in 3 days 1. Keep sling on right upper extremity intact 2. Nonweightbearing right upper extremity 3. May remove the sling to work on gentle range of motion of the left elbow
[2018-02-15 12:30] LABS: Glucose,Whole Blood 210 mg/dL (75-99)
[2018-02-15 12:54] LABS: Basophils % (A) 0 %; Eosinophils # (A) 0.1 k/uL (0-0.7); Eosinophils % (A) 1 %; HCT 32.7 % (34.0-46.0); HGB 10.7 gm/dL (11.4-16.0); Lymphocytes # (A) 0.7 k/uL (1.0-4.8); Lymphocytes % (A) 10 %; MCH 30.2 pg (25.0-35.0); MCHC 32.6 g/dL (31.0-37.0); MCV 92.7 fL (80.0-100.0); Mean Platelet Volume 7.9; Monocytes # (A) 0.4 k/uL (0-1.0); Monocytes % (A) 6 %; Neutrophils # (A) 5.6 k/uL (1.3-7.7); Neutrophils % (A) 82 %; Platelet Count 194 k/uL (150-450); RBC 3.53 m/uL (3.80-5.40); RDW 14.6 % (11.5-15.5); WBC 6.9 k/uL (3.8-10.6)
[2018-02-15 13:05] LABS: Calcium 8.8 mg/dL (8.4-10.2); Potassium 4.1 mmol/L (3.5-5.1)
[2018-02-15] MEDS: ACETAMINOPHEN TAB 325 MG TAB PO PRN (13:47)
[2018-02-15 17:32] LABS: Glucose,Whole Blood 121 mg/dL (75-99)
[2018-02-15 20:39] LABS: Glucose,Whole Blood 173 mg/dL (75-99)
[2018-02-16] MEDS: LEVOTHYROXINE 100 MCG TAB PO SCH (06:21)
[2018-02-16 07:17] LABS: Glucose,Whole Blood 126 mg/dL (75-99)
[2018-02-16] MEDS: INSULIN ASPART 100 UNIT/ML 1 ML 10 ML VIAL SQ SCH ×4 (07:31→20:53)
[2018-02-16] MEDS: amLODIPine 10 MG TAB PO SCH (08:38)
[2018-02-16] MEDS: CITALOPRAM HYDROBROMIDE 20 MG TAB PO SCH ×2 (08:38→20:03)
[2018-02-16] MEDS: PANTOPRAZOLE 40 MG TABLET PO SCH (08:38)
[2018-02-16] MEDS: ASPIRIN 81 MG PO SCH (08:38)
[2018-02-16] MEDS: LORATADINE 10 MG TAB PO SCH (08:38)
[2018-02-16] MEDS: LINAGLIPTIN 5 MG TABLET PO SCH (08:38)
[2018-02-16] MEDS: LETROZOLE 2.5 MG TAB PO SCH (08:38)
[2018-02-16 10:05] LABS: Calcium 8.7 mg/dL (8.4-10.2)
[2018-02-16 11:58] LABS: Glucose,Whole Blood 148 mg/dL (75-99)
[2018-02-16] MEDS: ACETAMINOPHEN TAB 325 MG TAB PO PRN (16:00)
[2018-02-16 17:29] LABS: Glucose,Whole Blood 139 mg/dL (75-99)
--- NOTE | 2018-02-16 18:47 | P.PN ---
Subjective Progress Note Date: 02/15/18 Progress note being dictated for Dr. Mckinney Interval history:83-year-old pleasant female came in today after slipping and falling when she was trying to get out of the bed, had a mechanical fall without any syncope. Patient is found to have proximal humerus fracture. Patient denied any fever chills nausea vomiting shortness of breath dysuria. Patient is in a lot of pain. Patient has been having falsely was by herself with the help of neighbors and frequent visits of her daughter. She denied any cough, abdominal pain diarrhea 02/12/2018 receiving gentle IV fluid hydration with renal function improving, down to 1.15. Potassium down to 5.7, and Kayexalate administered. Complains of generalized pain, improved with Ultram. Left ankle x-ray reported soft tissue swelling, no fracture .Good diet intake, consuming 100%. No nausea vomiting or diarrhea. Mild confusion, cooperative. REVIEW OF SYSTEMS: CONSTITUTIONAL: No fever, no malaise, no fatigue. HEENT: No recent visual problems or hearing problems. Denied any sore throat. CARDIOVASCULAR: No chest pain, orthopnea, PND, no palpitations, no syncope. PULMONARY: No shortness of breath, no cough, no hemoptysis. GASTROINTESTINAL: No diarrhea, no nausea, no vomiting, no abdominal pain. Normoactive bowel sounds. NEUROLOGICAL: No headaches, no weakness, no numbness. HEMATOLOGICAL: Denies any bleeding or petechiae. GENITOURINARY: Denies any burning micturition, frequency, or urgency. MUSCULOSKELETAL/RHEUMATOLOGICAL: Pain and swelling in the left the humerus ENDOCRINE: Denies any polyuria or polydipsia. The rest of the 14-point review of systems is negative. Active Medications Acetaminophen (Tylenol Tab) 650 mg PO Q6HR PRN PRN Reason: Fever and/ or Pain Amlodipine Besylate (Norvasc) 10 mg PO DAILY [facility] Last Admin: 02/12/18 09:51 Dose: 10 mg Aspirin (Aspirin) 81 mg PO DAILY [facility] Last Admin: 02/12/18 09:51 Dose: 81 mg Citalopram Hydrobromide (Celexa) 20 mg PO BID [facility] Last Admin: 02/12/18 08:16 Dose: 20 mg Sodium Chloride (Saline 0.9%) 1,000 mls @ 80 mls/hr IV .[id number] [facility] Last Admin: 02/12/18 16:53 Dose: 80 mls/hr Insulin Aspart (Novolog) 0 unit SQ ACHS [facility]; Protocol Last Admin: 02/12/18 17:54 Dose: 100 unit Ketorolac Tromethamine (Toradol) 30 mg IVP Q6HR [facility] Stop: 02/15/18 16:11 Last Admin: 02/12/18 16:53 Dose: Not Given Letrozole (Femara) 2.5 mg PO DAILY [facility] Last Admin: 02/12/18 09:51 Dose: 2.5 mg Levothyroxine Sodium (Synthroid) 100 mcg PO DAILY@0630 [facility] Last Admin: 02/12/18 05:53 Dose: 100 mcg Linagliptin (Tradjenta) 5 mg PO DAILY [facility] Last Admin: 02/12/18 09:51 Dose: 5 mg Loratadine (Claritin) 10 mg PO DAILY [facility] Last Admin: 02/12/18 09:51 Dose: 10 mg Miscellaneous Information (Rx Info: Iv Contrast Was Given) 1 each MISCELLANE DAILY PRN PRN Reason: Per Protocol Stop: 02/13/18 12:11 Last Admin: 02/11/18 12:57 Dose: 1 each Naloxone HCl (Narcan) 0.2 mg IV Q2M PRN PRN Reason: Opioid Reversal Pantoprazole Sodium (Protonix) 40 mg PO -BRKFST [facility] Last Admin: 02/12/18 08:16 Dose: 40 mg Tramadol HCl (Ultram) 50 mg PO QID PRN PRN Reason: Moderate Pain/Discomfort Last Admin: 02/12/18 08:17 Dose: 50 mg 02/15/2018 Evaluated by oncology and orthopedics. No surgical intervention recommended at this time. Patient does not appear to be a candidate for aggressive therapy as per oncology. Denies chest pain, palpitations or shortness of breath. Afebrile. ECF rehab planned at discharge. Objective - Vital Signs Vital signs: Vital Signs Temp 98.1 F 02/15/18 14:23 Pulse 81 02/15/18 14:23 Resp 16 02/15/18 15:01 BP 139/70 02/15/18 14:23 Pulse Ox 92 L 02/15/18 14:23 Intake & Output 10/07/18 10/08/18 10/08/18 18:59 06:59 18:59 Intake Total 120 800 400 Output Total 400 1200 1400 Balance -280 -400 -1000 Weight 68.039 kg Intake: Oral 120 800 400 Output: Urine 400 1200 1400 Straight 600 Other: Voiding Method Indwelling Catheter Indwelling Catheter Indwelling Catheter # Bowel Movements 0 1 - Exam GENERAL: The patient is alert and oriented x3, no acute distress HEENT: Pupils are round and equally reacting to light. EOMI. No scleral icterus. No conjunctival pallor. Normocephalic, atraumatic. CARDIOVASCULAR: S1 and S2 present. No murmurs, rubs, or gallops. PULMONARY: Chest is clear to auscultation, no wheezing or crackles. ABDOMEN: Soft, nontender, nondistended, normoactive bowel sounds. No palpable organomegaly. MUSCULOSKELETAL: Right shoulder tender, right arm in sling, limited range of motion. Fingers warm, pink, normal capillary refill EXTREMITIES: No cyanosis, clubbing, or pedal edema. NEUROLOGICAL: Gross neurological examination did not reveal any focal deficits. SKIN: No rashes. - Labs CBC & Chem 7: 02/15/18 12:31 02/16/18 09:21 Labs: Abnormal Lab Results - Last 24 Hours (Table) 02/14/18 02/15/18 02/15/18 Range/Units 21:57 07:37 12:18 RBC (3.80-5.40) m/uL Hgb (11.4-16.0) gm/dL Hct (34.0-46.0) % Lymphocytes # (1.0-4.8) k/uL BUN (7-17) mg/dL Glucose (74-99) mg/dL POC Glucose (mg/dL) 120 H 113 H 210 H (75-99) mg/dL 02/15/18 02/15/18 02/15/18 Range/Units 12:31 12:31 17:19 RBC 3.53 L (3.80-5.40) m/uL Hgb 10.7 L (11.4-16.0) gm/dL Hct 32.7 L (34.0-46.0) % Lymphocytes # 0.7 L (1.0-4.8) k/uL BUN 30 H (7-17) mg/dL Glucose 182 H (74-99) mg/dL POC Glucose (mg/dL) 121 H (75-99) mg/dL Assessment and Plan Assessment: -Fall mechanical with the right proximal humerus fracture in a patient with history of frequent falls -Generalized weakness due to deconditioning PT and OT consultation -Mild acute renal failure secondary to dehydration -Hyperkalemia -Hypertension -Type 2 diabetes mellitus -Mild senile or vascular dementia -Anxiety disorder -Hypothyroidism -Carcinoma of the vulva, 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 History of lymphoma Plan: Continue on current medication regime ,monitoring and symptomatic treatment. Pain management. PT/OT. Close monitoring of electrolytes, renal function with repeat labs ordered for a.m. DC Johnston, post void residuals, bladder scanned every 4hrs. discharge planning in progress for subacute rehab, pre auth. pending. The impression and plan of care has been dictated as directed. : I performed a history and examination of this patient, discussed the same with the dictator. I agree with the dictator's note ,documented as a scribe. Any additional findings or plans will be noted.
--- NOTE | 2018-02-16 18:52 | P.PN ---
Subjective Progress Note Date: 02/16/18 Progress note being dictated for Dr. Mckinney Interval history:83-year-old pleasant female came in today after slipping and falling when she was trying to get out of the bed, had a mechanical fall without any syncope. Patient is found to have proximal humerus fracture. Patient denied any fever chills nausea vomiting shortness of breath dysuria. Patient is in a lot of pain. Patient has been having falsely was by herself with the help of neighbors and frequent visits of her daughter. She denied any cough, abdominal pain diarrhea 02/12/2018 receiving gentle IV fluid hydration with renal function improving, down to 1.15. Potassium down to 5.7, and Kayexalate administered. Complains of generalized pain, improved with Ultram. Left ankle x-ray reported soft tissue swelling, no fracture .Good diet intake, consuming 100%. No nausea vomiting or diarrhea. Mild confusion, cooperative. REVIEW OF SYSTEMS: CONSTITUTIONAL: No fever, no malaise, no fatigue. HEENT: No recent visual problems or hearing problems. Denied any sore throat. CARDIOVASCULAR: No chest pain, orthopnea, PND, no palpitations, no syncope. PULMONARY: No shortness of breath, no cough, no hemoptysis. GASTROINTESTINAL: No diarrhea, no nausea, no vomiting, no abdominal pain. Normoactive bowel sounds. NEUROLOGICAL: No headaches, no weakness, no numbness. HEMATOLOGICAL: Denies any bleeding or petechiae. GENITOURINARY: Denies any burning micturition, frequency, or urgency. MUSCULOSKELETAL/RHEUMATOLOGICAL: Pain and swelling in the left the humerus ENDOCRINE: Denies any polyuria or polydipsia. The rest of the 14-point review of systems is negative. Active Medications Acetaminophen (Tylenol Tab) 650 mg PO Q6HR PRN PRN Reason: Fever and/ or Pain Amlodipine Besylate (Norvasc) 10 mg PO DAILY [facility] Last Admin: 02/12/18 09:51 Dose: 10 mg Aspirin (Aspirin) 81 mg PO DAILY [facility] Last Admin: 02/12/18 09:51 Dose: 81 mg Citalopram Hydrobromide (Celexa) 20 mg PO BID [facility] Last Admin: 02/12/18 08:16 Dose: 20 mg Sodium Chloride (Saline 0.9%) 1,000 mls @ 80 mls/hr IV .[id number] [facility] Last Admin: 02/12/18 16:53 Dose: 80 mls/hr Insulin Aspart (Novolog) 0 unit SQ ACHS [facility]; Protocol Last Admin: 02/12/18 17:54 Dose: 100 unit Ketorolac Tromethamine (Toradol) 30 mg IVP Q6HR [facility] Stop: 02/15/18 16:11 Last Admin: 02/12/18 16:53 Dose: Not Given Letrozole (Femara) 2.5 mg PO DAILY [facility] Last Admin: 02/12/18 09:51 Dose: 2.5 mg Levothyroxine Sodium (Synthroid) 100 mcg PO DAILY@0630 [facility] Last Admin: 02/12/18 05:53 Dose: 100 mcg Linagliptin (Tradjenta) 5 mg PO DAILY [facility] Last Admin: 02/12/18 09:51 Dose: 5 mg Loratadine (Claritin) 10 mg PO DAILY [facility] Last Admin: 02/12/18 09:51 Dose: 10 mg Miscellaneous Information (Rx Info: Iv Contrast Was Given) 1 each MISCELLANE DAILY PRN PRN Reason: Per Protocol Stop: 02/13/18 12:11 Last Admin: 02/11/18 12:57 Dose: 1 each Naloxone HCl (Narcan) 0.2 mg IV Q2M PRN PRN Reason: Opioid Reversal Pantoprazole Sodium (Protonix) 40 mg PO -BRKFST [facility] Last Admin: 02/12/18 08:16 Dose: 40 mg Tramadol HCl (Ultram) 50 mg PO QID PRN PRN Reason: Moderate Pain/Discomfort Last Admin: 02/12/18 08:17 Dose: 50 mg 02/15/2018 Evaluated by oncology and orthopedics. No surgical intervention recommended at this time. Patient does not appear to be a candidate for aggressive therapy as per oncology. Denies chest pain, palpitations or shortness of breath. Afebrile. ECF rehab planned at discharge. 02/16/2018 urinary retention persisted, Johnston catheter reinserted last night. Spiking fevers, T-max 101. Objective - Vital Signs Vital signs: Vital Signs Temp 101.0 F H 02/16/18 16:03 Pulse 88 02/16/18 14:00 Resp 18 02/16/18 15:27 BP 139/60 02/16/18 14:00 Pulse Ox 92 L 02/16/18 14:00 Intake & Output 02/15/18 02/16/18 02/16/18 18:59 06:59 18:59 Intake Total 400 440 Output Total 1400 1200 1600 Balance -1000 -1200 -1160 Intake: Oral 400 440 Output: Urine 1400 1200 1600 Uretheral (Johnston) 600 Other: Voiding Method Indwelling Catheter Bedside Commode Bedside Commode # Voids 1 # Bowel Movements 1 1 - Exam GENERAL: The patient is alert and oriented x3, no acute distress HEENT: Pupils are round and equally reacting to light. EOMI. No scleral icterus. No conjunctival pallor. Normocephalic, atraumatic. Scabs on forehead, cheeks, nose CARDIOVASCULAR: S1 and S2 present. No murmurs, rubs, or gallops. PULMONARY: Chest is clear to auscultation, no wheezing or crackles. ABDOMEN: Soft, nontender, nondistended, normoactive bowel sounds. No palpable organomegaly. MUSCULOSKELETAL: Right shoulder tender, right arm in sling, limited range of motion. Fingers warm, pink, normal capillary refill EXTREMITIES: No cyanosis, clubbing, or pedal edema. NEUROLOGICAL: Gross neurological examination did not reveal any focal deficits. SKIN: No rashes. - Labs CBC & Chem 7: 02/15/18 12:31 02/16/18 09:21 Labs: Abnormal Lab Results - Last 24 Hours (Table) 02/15/18 02/16/18 02/16/18 Range/Units 20:38 07:15 09:21 BUN 29 H (7-17) mg/dL Glucose 151 H (74-99) mg/dL POC Glucose (mg/dL) 173 H 126 H (75-99) mg/dL 02/16/18 02/16/18 Range/Units 11:54 17:10 BUN (7-17) mg/dL Glucose (74-99) mg/dL POC Glucose (mg/dL) 148 H 139 H (75-99) mg/dL Assessment and Plan Assessment: -Fall mechanical with the right proximal humerus fracture in a patient with history of frequent falls -Generalized weakness due to deconditioning PT and OT consultation -Mild acute renal failure secondary to dehydration -Hyperkalemia -Hypertension -Type 2 diabetes mellitus -Mild senile or vascular dementia -Anxiety disorder -Hypothyroidism -Carcinoma of the vulva, 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 Previous history of early- stage uterine carcinoma treated with BAO in 2010. History of lymphoma -Fevers, possible acute UTI, workup in progress Plan: Continue on current medication regime ,monitoring and symptomatic treatment. Blood cultures 2, UA with culture, micro, portable chest x-ray- ordered. Empiric IV antibiotics to be initiated once cultures collected. Pain management. PT/OT. Close monitoring of electrolytes, renal function with repeat labs ordered for a.m. further recommendations to follow. The impression and plan of care has been dictated as directed. : I performed a history and examination of this patient, discussed the same with the dictator. I agree with the dictator's note ,documented as a scribe. Any additional findings or plans will be noted.
[2018-02-16 20:29] LABS: Glucose,Whole Blood 154 mg/dL (75-99)
--- NOTE | 2018-02-16 20:49 | XR ---
EXAMINATION: XR chest 1V portable DATE AND TIME: 02/16/2018 7:04 PM CLINICAL INDICATION: fevers TECHNIQUE: PA and lateral COMPARISON: 02/11/2018. FINDINGS: Radiograph is rotated RPO. The lungs appear to be predominantly clear. However, in the right upper lobe there is partial silhoue tting of the vasculature presently, suggesting the possibility of early bronchopneumonia. This can be further characterized with serial chest radiographs. The pleural spaces are negative. The cardiac silhouette is mildly enlarged, and the thoracic aorta is tortuous. These are stable findi ngs. The comminuted right humeral surgical neck fracture is redemonstrated. Multifocal remodeled rib fract ures redemonstrated. IMPRESSION: NO DEFINITE ACUTE PROCESS; HOWEVER, RIGHT UPPER LOBE SUBTLE FINDING NOTED.
[2018-02-17] MEDS: LEVOTHYROXINE 100 MCG TAB PO SCH (05:38)
[2018-02-17 06:32] LABS: Appearance,Urine Clear (Clear); Bilirubin,Urine Negative (Negative); Blood,Urine Negative (Negative); Color,Urine Yellow; Glucose,Urine (UA) Negative (Negative); Hyaline Casts,Urine 1 /lpf (0-2); Ketones,Urine Negative (Negative); Leukocyte Esterase,Urine Moderate (Negative); Mucus,Urine Rare /hpf; Nitrite,Urine Negative (Negative); PH, Urine 5.5 (5.0-8.0); Protein,Urine 1+ (Negative); RBC,Urine 1 /hpf (0-5); Specific Gravity,Urine 1.012 (1.001-1.035); Urobilinogen,Urine <2.0 mg/dL (<2.0)
[2018-02-17 07:30] LABS: Glucose,Whole Blood 105 mg/dL (75-99)
[2018-02-17] MEDS: INSULIN ASPART 100 UNIT/ML 1 ML 10 ML VIAL SQ SCH ×4 (07:43→21:23)
[2018-02-17] MEDS: amLODIPine 10 MG TAB PO SCH (08:28)
[2018-02-17] MEDS: ASPIRIN 81 MG PO SCH (08:28)
[2018-02-17] MEDS: PANTOPRAZOLE 40 MG TABLET PO SCH (08:28)
[2018-02-17] MEDS: CITALOPRAM HYDROBROMIDE 20 MG TAB PO SCH ×2 (08:28→21:23)
[2018-02-17] MEDS: LETROZOLE 2.5 MG TAB PO SCH (08:28)
[2018-02-17] MEDS: LORATADINE 10 MG TAB PO SCH (08:29)
[2018-02-17] MEDS: LINAGLIPTIN 5 MG TABLET PO SCH (08:29)
[2018-02-17 11:54] LABS: Basophils % (A) 1 %; Eosinophils # (A) 0.1 k/uL (0-0.7); Eosinophils % (A) 2 %; HCT 31.7 % (34.0-46.0); Lymphocytes # (A) 0.7 k/uL (1.0-4.8); Lymphocytes % (A) 12 %; MCH 29.6 pg (25.0-35.0); MCHC 31.6 g/dL (31.0-37.0); MCV 93.6 fL (80.0-100.0); Mean Platelet Volume 7.8; Monocytes # (A) 0.4 k/uL (0-1.0); Monocytes % (A) 6 %; Neutrophils # (A) 4.8 k/uL (1.3-7.7); Neutrophils % (A) 78 %; Platelet Count 234 k/uL (150-450); RBC 3.39 m/uL (3.80-5.40); RDW 14.6 % (11.5-15.5); WBC 6.2 k/uL (3.8-10.6)
[2018-02-17 12:07] LABS: Calcium 8.4 mg/dL (8.4-10.2); Potassium 3.8 mmol/L (3.5-5.1)
[2018-02-17 12:42] LABS: Glucose,Whole Blood 143 mg/dL (75-99)
--- NOTE | 2018-02-17 15:31 | PN ---
PROGRESS NOTE DATE OF SERVICE: 02/17/2018 This is an 83-year-old woman who was admitted with fall and right proximal humerus fracture, is being closely monitored. The patient is confused, ECF rehab is being planned. No chest pain. No palpitations. No fever. PHYSICAL EXAM: Mild fever is noted. On exam, pulse 70, blood pressure 131/70, respirations 18, temperature 99.5. HEENT: Conjunctivae normal. Oral mucosa moist. Neck is no jugular venous distension, no carotid bruit, no lymph node enlargement. CARDIOVASCULAR SYSTEM: S1, S2, muffled. RESPIRATORY: Breath sounds diminished at the bases, no rhonchi, no crackles. ABDOMEN: Soft, nontender. LEGS: No edema, no swelling. NERVOUS SYSTEM: No focal deficits. Right upper arm fracture. LABS: WBC 6.2, hemoglobin is 10, creatinine is 1.08, UA noted. ASSESSMENT: 1. Fall, mechanical with right proximal humerus fracture. 2. Urinary tract infection with fever. 3. Generalized weakness, secondary to deconditioning PT,OT. 4. Mild acute renal failure. 5. Hyperkalemia. 6. Hypertension. 7. Diabetes mellitus type 2. 8. Senile vascular dementia. 9. Anxiety disorder. 10.Hypothyroidism. 11.CA of vulva with possible lung metastases. 12.Previous history of early stage uterine carcinoma. RECOMMENDATION: Recommend to continue current management, continue symptomatic treatment. At this time, will initiate IV antibiotics. Urine culture, blood cultures. Guarded prognosis. Further recommendations to follow. MMODL / IJN: [id number] / MTDRené
[2018-02-17 17:33] LABS: Glucose,Whole Blood 147 mg/dL (75-99)
[2018-02-17 21:09] LABS: Glucose,Whole Blood 159 mg/dL (75-99)
[2018-02-18] MEDS: traMADol 50 MG TAB PO PRN (01:44)
[2018-02-18] MEDS: LEVOTHYROXINE 100 MCG TAB PO SCH (05:49)
[2018-02-18 07:25] LABS: Glucose,Whole Blood 105 mg/dL (75-99)
[2018-02-18 07:45] VITALS: BP 147/66; PULSE 77; RESP 16; TEMP 98.9
[2018-02-18] MEDS: PANTOPRAZOLE 40 MG TABLET PO SCH (08:00)
[2018-02-18] MEDS: INSULIN ASPART 100 UNIT/ML 1 ML 10 ML VIAL SQ SCH (08:00)
[2018-02-18] MEDS: CITALOPRAM HYDROBROMIDE 20 MG TAB PO SCH (08:46)
[2018-02-18] MEDS: LINAGLIPTIN 5 MG TABLET PO SCH (08:46)
[2018-02-18] MEDS: ASPIRIN 81 MG PO SCH (08:46)
[2018-02-18] MEDS: amLODIPine 10 MG TAB PO SCH (08:46)
[2018-02-18] MEDS: LORATADINE 10 MG TAB PO SCH (08:47)
[2018-02-18] MEDS: LETROZOLE 2.5 MG TAB PO SCH (08:47)
[2018-02-18 09:54] LABS: Basophils % (A) 0 %; Eosinophils # (A) 0.2 k/uL (0-0.7); Eosinophils % (A) 4 %; HCT 29.2 % (34.0-46.0); HGB 9.1 gm/dL (11.4-16.0); Lymphocytes % (A) 17 %; MCH 28.2 pg (25.0-35.0); MCHC 31.2 g/dL (31.0-37.0); MCV 90.4 fL (80.0-100.0); Mean Platelet Volume 8.3; Monocytes # (A) 0.5 k/uL (0-1.0); Monocytes % (A) 9 %; Neutrophils # (A) 3.9 k/uL (1.3-7.7); Neutrophils % (A) 68 %; Platelet Count 185 k/uL (150-450); RBC 3.23 m/uL (3.80-5.40); RDW 14.7 % (11.5-15.5); WBC 5.7 k/uL (3.8-10.6)
[2018-02-18 10:15] LABS: Calcium 8.8 mg/dL (8.4-10.2); Potassium 4.4 mmol/L (3.5-5.1)
--- NOTE | 2018-02-22 08:52 | CDI ---
Last Revision, April 2017 Documentation Clarification Form Date: 02/22/18 From: Merissa Leal Phone: If you have a question regarding this query, please contact Milli Hou at [phone] between 8am and 5pm. Admit Date: 02/11/2018 2:57:00 PM Patient Name: Lesley Griggs Visit Number: [id number] Discharge Date: 02/18/18 ATTENTION: The Clinical Documentation Specialists (CDI) and [facility] Coding Staff appreciate your assistance in clarifying documentation. Please respond to the clarification below the line at the bottom and electronically sign. The CDI & [facility] Coding staff will review the response and follow-up if needed. Please note: Queries are made part of the Legal Health Record. If you have any questions, please contact the author of this message via ITS. Michell Quispe MD Coccyx ulcer is documented in the 02/13 & 02/14 progress notes.. Patient history/risk factors: Patient was admitted with fracture to the proximal humeru on the right due to a fall. The patient has a history of frequent falls. The patient also has a history of open area to coccyx since October of 2016, diabetes, hypertension and dementia. Clinical Indicators: Per past medical history, open area to coccyx since October 2016. Treatment: Patient has had multiple debridements to the ulcer but nothing done on this admission. In your professional opinion, can the etiology and severity of the wound be further specified as one of the following? 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
== END 2018-02-18 12:30 | DRG 563 ==
LOC: EC 09:41 → 4MS4W 14:57 → EEVIPCON 14:57
PROVIDERS: ADMIT Internal Medicine; ATTEND Internal Medicine
DX: S42.201A Unspecified fracture of upper end of right humerus, initial encounter for closed fracture (principal); N17.9 Acute kidney failure, unspecified; N39.0 Urinary tract infection, site not specified; R47.01 Aphasia; C78.02 Secondary malignant neoplasm of left lung; E86.0 Dehydration; E87.5 Hyperkalemia; E11.622 Type 2 diabetes mellitus with other skin ulcer; E83.42 Hypomagnesemia; C51.9 Malignant neoplasm of vulva, unspecified; F01.50 Vascular dementia, unspecified severity, without behavioral disturbance, psychotic disturbance, mood disturbance, and anxiety; L98.491 Non-pressure chronic ulcer of skin of other sites limited to breakdown of skin; F03.90 Unspecified dementia, unspecified severity, without behavioral disturbance, psychotic disturbance, mood disturbance, and anxiety; E03.9 Hypothyroidism, unspecified; E78.5 Hyperlipidemia, unspecified; F41.9 Anxiety disorder, unspecified; G89.29 Other chronic pain; I10 Essential (primary) hypertension; R29.6 Repeated falls; R62.7 Adult failure to thrive; S70.02XA Contusion of left hip, initial encounter; T46.4X5A Adverse effect of angiotensin-converting-enzyme inhibitors, initial encounter; M19.90 Unspecified osteoarthritis, unspecified site; M25.551 Pain in right hip; M25.572 Pain in left ankle and joints of left foot; M54.2 Cervicalgia; M54.9 Dorsalgia, unspecified; R51 Headache; M25.511 Pain in right shoulder; Z79.84 Long term (current) use of oral hypoglycemic drugs; Z79.899 Other long term (current) drug therapy; Z79.82 Long term (current) use of aspirin; Z79.890 Hormone replacement therapy; Z66 Do not resuscitate; Z90.710 Acquired absence of both cervix and uterus; Z85.72 Personal history of non-Hodgkin lymphomas; Z85.42 Personal history of malignant neoplasm of other parts of uterus; Z85.41 Personal history of malignant neoplasm of cervix uteri; Z87.01 Personal history of pneumonia (recurrent); Z90.79 Acquired absence of other genital organ(s); Z90.722 Acquired absence of ovaries, bilateral; Z90.49 Acquired absence of other specified parts of digestive tract; Z80.0 Family history of malignant neoplasm of digestive organs; W01.0XXA Fall on same level from slipping, tripping and stumbling without subsequent striking against object, initial encounter; Y92.009 Unspecified place in unspecified non-institutional (private) residence as the place of occurrence of the external cause
CPT/HCPCS: 36415; 70450; 71045; 71260; 72125; 72170; 80048; 80053; 81001; 81003; 82550; 82553; 83036; 83735; 84132; 84484; 85025; 85027; 85610; 85730; 87040; 87086; 96361; 96365; 96375; 99285

== ENCOUNTER 2018-03-15 08:58 | Day surgery (SDC) | payer BC, MEDICARE | END 2018-03-15 10:00 | LOC: RADPROMAIN 08:58 | PROVIDERS: ATTEND Internal Medicine Hematology & Oncology | DX: Z53.8 Procedure and treatment not carried out for other reasons (principal); C52 Malignant neoplasm of vagina; R93.89 Abnormal findings on diagnostic imaging of other specified body structures ==